=== PATIENT | male | born 1945 | race Caucasian/White ===

== ENCOUNTER 2018-12-27 16:00 | Inpatient (IN) | payer MEDICARE, OTHER ==
[2018-12-27 16:41] LABS: #Eosinphils 0.1 thou/uL (0.0-0.7); #Lymphocytes 1.5 thou/uL (1.20-3.40); #Monocytes 0.9 thou/uL (0.11-0.59); #Neutrophils 6.1 thou/uL (1.40-6.50); %Basophils 0.3 % (0.0-1.0); %Eosinophils 0.6 % (0.0-10.0); %Lymphocytes 17.5 % (21.0-51.0); %Monocytes 9.9 % (0.0-10.0); %Neutrophils 71.6 % (42.0-75.0); Mean Corpuscular HGB CONC 34.4 g/dL (32.0-36.0); Mean Corpuscular Hemoglobin 29.6 pg (27.0-31.0); Mean Corpuscular Volume 85.9 fL (78.0-98.0); Mean Platelet Volume 8.6 fL (7.4-10.4); Platelet Count 214 thou/uL (130-400); RBC Distribution Width 13.9 % (11.5-14.5); Red Blood Cell (RBC) Count 2.36 mill/uL (4.70-6.10); White Blood Cell (WBC) Count 8.6 thou/uL (4.8-10.8)
[2018-12-27 16:49] LABS: PTT 73.4 SEC (22.9-36.1); Prothrombin Time 62.3 SEC (12.0-14.7)
[2018-12-27 16:51] LABS: INR-International Normal Ratio 7.4
[2018-12-27 17:27] LABS: ALT (SGPT) 23 U/L (8-55); AST (SGOT) 27 U/L (5-34); Albumin 3.4 g/dL (3.4-4.8); Alkaline Phosphatase 75 U/L (40-110); Anion Gap 16 mmol/L (10-20); BUN (Urea Nitrogen) 20 mg/dL (8.4-25.7); Bilirubin, Total 0.8 mg/dL (0.2-1.2); CK (CPK) 106 U/L (30-200); Calc. Creatinine Clearance 0 mL/min (70-130); Calcium 8.3 mg/dL (7.8-10.44); Carbon Dioxide 31 mmol/L (23-31); Chloride 85 mmol/L (98-107); Estimated GFR-MDRD 72; Globulin 2.5 g/dL (2.4-3.5); Glucose 224 mg/dL (83-110); Lipase 9 U/L (8-78); Protein, Total 5.9 g/dL (5.8-8.1); Sodium 129 mmol/L (136-145)
[2018-12-27] MEDS ORDERED: Pantoprazole 40 MG VIAL ONE (17:28)
[2018-12-27 17:37] LABS: Potassium 2.5 mmol/L (3.5-5.1)
[2018-12-27] MEDS ORDERED: Pantoprazole 80 MG, Admixture Fee 1 EACH in Sodium Chloride 0.9% 100 ML IVPB SCH (17:45)
[2018-12-27] MEDS ORDERED: Potassium Chloride 20 MEQ TAB ONE (17:55)
[2018-12-27 18:08] LABS: Bacteria/HPF None Seen HPF (None Seen); Bilirubin Negative (Negative); Blood, Urine Trace (Negative); Clarity Clear (Clear); Glucose, Urine (Dipstick) Normal (Negative); Leukocyte Negative Leu/uL (Negative); Nitrite Negative (Negative); Protein, Urine (Dipstick) Negative (Neg-Trace); Squamous Epithelial 0-3 HPF (0-3); Urobilinogen Normal mg/dL (Less than 2); WBC/HPF 0-3 HPF (0-3)
[2018-12-27] MEDS ORDERED: Ondansetron PF 4 MG/2 ML Vial IVP PRN (18:45)
[2018-12-27] MEDS ORDERED: Ondansetron ODT 4 MG TAB SL PRN (18:45)
[2018-12-27] MEDS ORDERED: Dextrose 50% Abboject 50 ML SYRINGE SLOW IVP PRN (18:52)
[2018-12-27] MEDS ORDERED: HumaLOG 300 UNITS/3 ML VIAL SC PRN (18:52)
[2018-12-27] MEDS ORDERED: Acetaminophen 325 MG TAB PO PRN (18:52)
[2018-12-27] MEDS ORDERED: Dextrose 5% in Water 1,000 ML IV PRN (18:52)
[2018-12-27] MEDS ORDERED: NS 0.9% w/ 40 MEQ KCL 1,000 ML IV SCH (19:15)
[2018-12-27] MEDS ORDERED: Phytonadione 10 MG/ML AMP PO SCH (19:15)
[2018-12-27 19:46] VITALS: BMI 31.7
[2018-12-27 20:28] LABS: Free T4 (Free Thyroxine) 1.12 ng/dL (0.70-1.48); Thyroid Stimulating Hormone 0.883 uIU/mL (0.35-4.94)
[2018-12-27] MEDS: Sodium Chloride 0.9% (PF) 10 ML VIAL FS PRN (21:24)
[2018-12-27] MEDS: Pantoprazole 40 MG VIAL IVP SCH (21:24)
--- NOTE | 2018-12-27 21:28 | HP ---
PRIMARY CARE PHYSICIAN: Charles Howard DO. CHIEF COMPLAINT: "I have an elevated INR." HISTORY OF PRESENT ILLNESS: Mr. Harkins is a pleasant 73-year-old gentleman who has a history of chronic atrial fibrillation, he is on Coumadin and he regularly goes to the [facility] in order to have his PT and INR checked. He went to the coumadin clinic today and was told that his INR was elevated. He had it rechecked and it was confirmed that it was high and as a result, he was instructed to come to the ER for evaluation. When he was in the ER, the INR was drawn and it was found that his INR was 7.4. He was also found to be anemic as well with a hemoglobin of 7, and he is also noted to have some dark tarry stools, and for this reason, he is being admitted. The patient says that he noticed the dark stools for the past week, but he denies having any abdominal pain. No nausea, no vomiting. He says that he denies feeling lightheaded or dizzy. No shortness of breath or chest pain, but does admit that he has been feeling "uneasy" lately. When asked if he had any change in his medications, he denies this. He says he has taken melatonin 3 mg for the last few days, but does admit to decreased appetite recently. REVIEW OF SYSTEMS: All systems were reviewed and are negative except for that mentioned in the History of Present Illness. PAST MEDICAL HISTORY: Significant for chronic atrial fibrillation, diabetes mellitus, history of a colon polyp, and hypertension. PAST SURGICAL HISTORY: He has had a right colon resection and umbilical hernia repair as well as a vasectomy. ALLERGIES: NO KNOWN DRUG ALLERGIES. 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 He is a former smoker, but he quit at least 20 years ago. Denies any alcohol use and he is a full code. FAMILY HISTORY: Mother had pancreatic cancer. Father had prostate cancer. CURRENT MEDICATIONS: Include; 1. Amlodipine/benazepril 10/20 daily. 2. Hydrochlorothiazide 25 mg daily. 3. Carvedilol 6.25 mg twice a day. 4. Janumet 50 mg/1000 twice a day. 5. Actos 15 mg daily. 6. Atorvastatin 10 mg daily. 7. Diltiazem extended release 180 mg daily. 8. Flomax 0.4 mg daily. 9. Warfarin 5 mg daily. 10. Avodart 0.5 mg daily. PHYSICAL EXAMINATION: GENERAL: He is alert and oriented. He appears to be in no acute distress. He is well developed and well nourished. VITAL SIGNS: Blood pressure was 133/58, heart rate 104, respiratory rate 16. He is afebrile. HEENT: Pupils are equal, round, and reactive. Extraocular muscles are intact. His sclerae are anicteric. Throat; no erythema, no exudates. NECK: No adenopathy, no bruits. LUNGS: He has some mild expiratory wheezing. No rhonchi, no rales. CARDIOVASCULAR: His heart rate is irregular. Rate is normal. There are no murmurs, clicks, or rubs. ABDOMEN: Obese, soft, nontender, and nondistended. Positive for bowel sounds. No rebound. No guarding. EXTREMITIES: He has 1 to 2+ edema and some chronic venous stasis changes and no significant lesions. NEUROLOGIC: Grossly nonfocal. SKIN AND INTEGUMENT: No skin changes, no rashes other than some hyperpigmentation in the lower extremities. LABORATORY DATA AND IMAGING: White blood cell count 8.6, hemoglobin 7, hematocrit is 20.3, platelet count is 214. INR is 7.4. Sodium is 129, potassium 2.5, chloride is 85, CO2 is 31, BUN of 20, creatinine 1.02, glucose is 224. Troponin is less than 0.010. ASSESSMENT: 1. This is a pleasant 73-year-old gentleman who is being admitted for supratherapeutic INR. Also concern for gastrointestinal bleed and he is also noted to be hypokalemic and hyponatremic as well. 2. He will be admitted to the telemetry unit, given the low potassium and sodium. With regard to the supratherapeutic INR, we will give him a low-dose vitamin K, hold his Coumadin. 3. Possible gastrointestinal bleed. We will put him on IV Protonix q.12 and consult GI for further evaluation. 4. Hypokalemia. This will be replaced. I suspect this is low due to poor oral intake over the last week. 5. Hyponatremia. This appears to be chronic going back at least a year. We will check urine and serum osmolalities as well as a urine sodium to help distinguish the type of hyponatremia. 6. Atrial fibrillation. Currently, his heart rate is controlled and we will restart his medications of for this. 7. Hypertension. We will continue his home medications. Job ID: [id number]
[2018-12-28 01:02] LABS: Hemoglobin 7.9 g/dL (14.0-18.0)
[2018-12-28] MEDS ORDERED: Potassium Chloride 20 MEQ TAB PO SCH (01:45)
[2018-12-28] MEDS: HumaLOG 300 UNITS/3 ML VIAL SC PRN ×3 (05:25→17:40)
[2018-12-28 06:28] LABS: #Eosinphils 0.1 thou/uL (0.0-0.7); #Lymphocytes 1.3 thou/uL (1.20-3.40); #Monocytes 0.8 thou/uL (0.11-0.59); #Neutrophils 4.5 thou/uL (1.40-6.50); %Basophils 0.5 % (0.0-1.0); %Eosinophils 0.8 % (0.0-10.0); %Lymphocytes 19.5 % (21.0-51.0); %Monocytes 12.3 % (0.0-10.0); %Neutrophils 66.8 % (42.0-75.0); Hemoglobin 7.4 g/dL (14.0-18.0); Mean Corpuscular HGB CONC 34.3 g/dL (32.0-36.0); Mean Corpuscular Hemoglobin 29.7 pg (27.0-31.0); Mean Corpuscular Volume 86.7 fL (78.0-98.0); Mean Platelet Volume 9.1 fL (7.4-10.4); Platelet Count 189 thou/uL (130-400); RBC Distribution Width 13.8 % (11.5-14.5); Red Blood Cell (RBC) Count 2.51 mill/uL (4.70-6.10); White Blood Cell (WBC) Count 6.8 thou/uL (4.8-10.8)
[2018-12-28 06:31] LABS: INR-International Normal Ratio 3.1; Prothrombin Time 31.4 SEC (12.0-14.7)
[2018-12-28 06:51] LABS: Anion Gap 11 mmol/L (10-20); BUN (Urea Nitrogen) 12 mg/dL (8.4-25.7); Calc. Creatinine Clearance 127 mL/min (70-130); Calcium 8.1 mg/dL (7.8-10.44); Carbon Dioxide 33 mmol/L (23-31); Chloride 89 mmol/L (98-107); Estimated GFR-MDRD Greater than 90; Glucose 198 mg/dL (83-110); Magnesium 1.6 mg/dL (1.6-2.6); Sodium 130 mmol/L (136-145)
[2018-12-28 06:55] LABS: Potassium 2.6 mmol/L (3.5-5.1)
[2018-12-28] MEDS ORDERED: Magnesium Sulfate 2 GM in Sodium Chloride 0.9% 100 ML IVPB SCH (07:00)
[2018-12-28] MEDS ORDERED: Potassium Chloride 40 MEQ in Premix Bag 1 BAG IVPB SCH (07:00)
[2018-12-28] MEDS ORDERED: Magnesium 2 GM/50 ML 2 GM in Premix Bag 1 BAG IVPB SCH (07:15)
[2018-12-28] MEDS ORDERED: Phytonadione 10 MG/ML AMP PO SCH (07:45)
[2018-12-28] MEDS ORDERED: Potassium Chloride 2 MEQ in Premix Bag 1 BAG IVPB SCH (08:00)
[2018-12-28] MEDS: Pantoprazole 40 MG VIAL IVP SCH ×2 (08:38→20:54)
[2018-12-28] MEDS: Pioglitazone HCl 15 MG TAB PO SCH (08:38)
[2018-12-28] MEDS: metFORMIN 500 MG TAB PO SCH ×2 (08:38→17:40)
[2018-12-28] MEDS: Atorvastatin Calcium 10 MG TAB PO SCH (08:38)
[2018-12-28] MEDS: Amlodipine 5 mg/Benazepril 10 mg CAP PO SCH (08:38)
[2018-12-28] MEDS: Tamsulosin HCl 0.4 MG CAP PO SCH (08:38)
[2018-12-28] MEDS: Carvedilol 6.25 MG TAB PO SCH ×2 (08:38→20:53)
[2018-12-28] MEDS: Dutasteride 0.5 MG CAP PO SCH (08:38)
[2018-12-28] MEDS: Potassium Chloride 20 MEQ TAB PO SCH ×2 (08:39→17:40)
[2018-12-28] MEDS: Alogliptin 6.25 MG TAB PO SCH ×2 (08:39→17:39)
[2018-12-28] MEDS ORDERED: Non-Formulary Item 1 EACH (Sitagliptin Phos/Metformin Hcl [Janumet] 1 TAB) PO SCH (09:00)
[2018-12-28] MEDS ORDERED: BENAZEPRIL PO SCH (09:00)
[2018-12-28] MEDS ORDERED: Non-Formulary Item 1 EACH (Diltiazem Hcl [Diltiazem Er 24 Hr] 180 MG) PO SCH (09:00)
[2018-12-28] MEDS ORDERED: AMLODIPINE BESYLATE PO SCH (09:00)
[2018-12-28] MEDS: Potassium Chloride 20 MEQ in Premix Bag 1 BAG IVPB SCH ×2 (09:56→11:01)
[2018-12-28 16:01] LABS: Potassium 3.2 mmol/L (3.5-5.1)
[2018-12-28] MEDS ORDERED: GoLYTELY 4,000 ml Bottle PO SCH (16:30)
--- NOTE | 2018-12-28 17:33 | PDOC.HOSPP ---
- Subjective Encounter Date: 12/28/18 Encounter Time: 17:31 Subjective: Mr. Harkins was seen today in follow-up of supra-therapeutic INR and GI bleed. He says he feels much better today. No complaints. - Objective Vital Signs & Weight: Vital Signs (12 hours) Temp Pulse Resp BP Pulse Ox 12/28/18 16:00 98.6 F 92 20 156/71 H 93 L 12/28/18 11:00 98.6 F 89 20 135/76 92 L 12/28/18 08:00 93 L 12/28/18 07:35 98.6 F 99 20 148/76 H 93 L Weight Weight 247 lb I&O: 12/27/18 12/28/18 12/29/18 06:59 06:59 06:59 Intake Total 350 240 Balance 350 240 Result Diagrams: 12/28/18 05:51 12/28/18 15:47 Additional Labs: Accuchecks 12/28/18 12/28/18 12/28/18 16:16 11:08 05:03 POC Glucose 210 H 264 H 223 H 12/27/18 21:44 POC Glucose 275 H Hospitalist ROS - Medication Medications: Active Medications Generic Name Dose Route Start Last Admin Trade Name Freq PRN Reason Stop Dose Admin Alogliptin Benzoate 12.5 mg 12/28/18 08:00 12/28/18 08:39 Alogliptin PO 12.5 mg BID-WM SONIA Administration Amlodipine/Benazepril HCl 2 cap 12/28/18 09:00 12/28/18 08:38 Lotrel 5/10 PO 2 cap DAILY SONIA Administration Atorvastatin Calcium 10 mg 12/28/18 09:00 12/28/18 08:38 Lipitor PO 10 mg DAILY SONIA Administration Carvedilol 6.25 mg 12/28/18 09:00 12/28/18 08:38 Coreg PO 6.25 mg BID SONIA Administration Diltiazem HCl 180 mg 12/28/18 09:00 12/28/18 08:38 Cardizem Cd PO 180 mg DAILY SONIA Administration Dutasteride 0.5 mg 12/28/18 09:00 12/28/18 08:38 Avodart PO 0.5 mg DAILY SONIA Administration Insulin Human Lispro 0 units 12/27/18 18:52 12/28/18 12:15 Humalog SC 6 unit .MODERATE SLIDING SC PRN Administration Moderate Correctional Scale Insulin Human Lispro 0 units 12/27/18 18:52 12/27/18 21:43 Humalog SC 3 unit .BEDTIME SLIDING SC PRN Administration Bedtime Correctional Scale Metformin HCl 1,000 mg 12/28/18 08:00 12/28/18 08:38 Glucophage PO 1,000 mg BID-WM SONIA Administration Pantoprazole Sodium 40 mg 12/27/18 21:00 12/28/18 08:38 Protonix IVP 40 mg Q12HR SONIA Administration Pioglitazone HCl 15 mg 12/28/18 09:00 12/28/18 08:38 Actos PO 15 mg DAILY SONIA Administration Potassium Chloride 20 meq 12/28/18 08:00 12/28/18 08:39 K-Dur PO 12/29/18 08:01 20 meq BID-WM SONIA Administration Sodium Chloride 10 ml 12/27/18 18:59 12/27/18 21:24 Normal Saline Pf FS 10 ml PRN PRN Administration RECONSTITUTION Tamsulosin HCl 0.4 mg 12/28/18 09:00 12/28/18 08:38 Flomax PO 0.4 mg DAILY SONIA Administration - Exam Eye: PERRL Heart: RRR, no murmur, no gallops, no rubs, normal peripheral pulses Respiratory: CTAB, no wheezes, no rales, no ronchi, normal chest expansion, no tachypnea, normal percussion Gastrointestinal: soft, normal bowel sounds, no palpable masses, no hepatomegaly Extremities: no cyanosis, 2+ LE edema Hosp A/P (1) Warfarin-induced coagulopathy Code(s): D68.32 - HEMORRHAGIC DISORD D/T EXTRINSIC CIRCULATING ANTICOAGULANTS; T45.515A - ADVERSE EFFECT OF ANTICOAGULANTS, INITIAL ENCOUNTER Status: Acute (2) Hypertension Code(s): I10 - ESSENTIAL (PRIMARY) HYPERTENSION Status: Acute (3) Atrial fibrillation Code(s): I48.91 - UNSPECIFIED ATRIAL FIBRILLATION Status: Acute (4) Diabetes mellitus type 2 in obese Code(s): E11.69 - TYPE 2 DIABETES MELLITUS WITH OTHER SPECIFIED COMPLICATION; E66.9 - OBESITY, UNSPECIFIED Status: Chronic (5) Hypokalemia Code(s): E87.6 - HYPOKALEMIA Status: Acute (6) Hyponatremia Code(s): E87.1 - HYPO-OSMOLALITY AND HYPONATREMIA Status: Chronic - Plan * Coagulopathy due to coumadin- an additional dose of Vitamin K was given today * HTN- blood pressure is stable- will re-start home medications for now * Hypokalemia- continue to replace * Hyponatremia- chronic- labs work suggests SIADH- will discontinue IV fluids * GI- bleed- await GI input
--- NOTE | 2018-12-28 22:52 | CON ---
DATE OF CONSULTATION: REASON FOR CONSULTATION: GI consult for anemia, possible GI bleed. HISTORY OF PRESENT ILLNESS: Mr. Harkins is a 73-year-old who is admitted to the hospital, secondary to not feeling well over the past couple of days. He initially thought maybe he had a stomach bug. He did not have much of an appetite. No real pain. He had a little bit of dark stool, probably black last week, and he is concerned that maybe blood, but he was not sure. He is on Coumadin as well for atrial fibrillation. He was going to wait till he had an appointment next week, but ultimately decided to come to the emergency room as he was not feeling well. Also, he had seen his primary care physician, Dr. Howard, who told him that his INR was elevated. the stool is getting back to normal in color. He denies any abdominal pain, nausea, vomiting, or hematochezia or hematemesis. PAST MEDICAL HISTORY: Chronic atrial fibrillation, diabetes and hypertension. He had a large colon polyp from right colon, necessitating a right hemicolectomy in 2011. He had a followup colonoscopy in 13 years, not had one since. PAST SURGICAL HISTORY: Umbilical hernia repair, right hemicolectomy, and vasectomy ALLERGIES: NO KNOWN DRUG ALLERGIES. 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 Former smoker. Does not drink. FAMILY HISTORY: Father, prostate cancer. Mother, pancreatic. MEDICATIONS: 1. Amlodipine/benazepril. 2. Hydrochlorothiazide. 3. Carvedilol. 4. Janumet. 5. Actos. 6. Atorvastatin. 7. Diltiazem. 8. Flomax. 9. Warfarin. 10. Avodart. Medications here: 1. Tylenol. 2. Amlodipine/benazepril. 3. Atorvastatin. 4. Carvedilol. 5. Diltiazem. 6. Avodart. 7. Insulin sliding scale. 8. Metformin 1000 b.i.d. with meals. 9. Protonix 40 IV q.12. 10. Actos. 11. P.r.n. potassium. 12. Flomax. REVIEW OF SYSTEMS: Negative for dysphagia or odynophagia. Negative for weight loss. Positive for some appetite loss recently, but that is improving. Negative for sick contacts. Negative for change in medications. Negative for NSAID use. Negative for recent antibiotics. LABORATORY DATA: Hemoglobin is 7.3; on admission, it was 13.1 in December 2017, it is unclear what it was in between. His hemoglobin stayed about that was 7.4 today at 5 in the morning. Platelet count is 189, white count 6.8. INR was 7.3 on admission, it is 3.1 now. Sodium 129, potassium 3.5, BUN and creatinine 20 and 1.2. Liver function tests normal. BNP 132. Cortisol is 7.7, TSH 0.88. Urinalysis normal. Stool occult blood negative. ASSESSMENT: Anemia of unclear etiology. He did have an elevated INR for dark stools, but his occult blood test was negative. He is about a year overdue for a colonoscopy as in 2012. In 2011, he had removal of large benign polyp from right colon surgically. PLAN: Liquid diet today. Bowel prep today. Colonoscopy and EGD tomorrow. We will continue to hold Coumadin for now. Job ID: [id number]
[2018-12-29 05:52] LABS: #Eosinphils 0.1 thou/uL (0.0-0.7); #Lymphocytes 1.1 thou/uL (1.20-3.40); #Monocytes 0.7 thou/uL (0.11-0.59); #Neutrophils 4.4 thou/uL (1.40-6.50); %Basophils 0.2 % (0.0-1.0); %Eosinophils 0.9 % (0.0-10.0); %Lymphocytes 18.1 % (21.0-51.0); %Monocytes 11.1 % (0.0-10.0); %Neutrophils 69.7 % (42.0-75.0); Hemoglobin 7.7 g/dL (14.0-18.0); Mean Corpuscular HGB CONC 34.3 g/dL (32.0-36.0); Mean Corpuscular Hemoglobin 30.3 pg (27.0-31.0); Mean Corpuscular Volume 88.5 fL (78.0-98.0); Mean Platelet Volume 8.8 fL (7.4-10.4); Platelet Count 200 thou/uL (130-400); RBC Distribution Width 13.9 % (11.5-14.5); Red Blood Cell (RBC) Count 2.52 mill/uL (4.70-6.10); White Blood Cell (WBC) Count 6.3 thou/uL (4.8-10.8)
[2018-12-29 05:56] LABS: INR-International Normal Ratio 1.3; Prothrombin Time 16.3 SEC (12.0-14.7)
[2018-12-29 06:17] LABS: Anion Gap 10 mmol/L (10-20); BUN (Urea Nitrogen) 8 mg/dL (8.4-25.7); Calc. Creatinine Clearance 117 mL/min (70-130); Calcium 7.8 mg/dL (7.8-10.44); Carbon Dioxide 34 mmol/L (23-31); Chloride 92 mmol/L (98-107); Estimated GFR-MDRD 84; Glucose 184 mg/dL (83-110); Sodium 133 mmol/L (136-145)
[2018-12-29 06:22] LABS: Potassium 2.8 mmol/L (3.5-5.1)
[2018-12-29] MEDS: Carvedilol 6.25 MG TAB PO SCH ×2 (06:40→20:14)
[2018-12-29] MEDS ORDERED: Potassium Chloride 40 MEQ in Premix Bag 1 BAG IVPB SCH (07:00)
[2018-12-29 08:48] LABS: Magnesium 1.8 mg/dL (1.6-2.6); Phosphorus 2.1 mg/dL (2.3-4.7)
[2018-12-29] MEDS: Potassium Chloride 20 MEQ in Premix Bag 1 BAG IVPB SCH ×2 (08:54→14:16)
[2018-12-29] MEDS: Pantoprazole 40 MG VIAL IVP SCH ×2 (08:54→20:15)
[2018-12-29] MEDS ORDERED: Fentanyl 100 MCG/2 ML VIAL ONE (11:47)
[2018-12-29] MEDS ORDERED: Ketamine 50 MG/ML (10ML VIAL) ONE (12:32)
[2018-12-29] MEDS: Alogliptin 6.25 MG TAB PO SCH ×2 (12:55→17:27)
[2018-12-29] MEDS: metFORMIN 500 MG TAB PO SCH ×2 (12:55→17:28)
[2018-12-29] MEDS ORDERED: Promethazine HCl 25 MG/ML VIAL IM PRN (13:00)
[2018-12-29] MEDS ORDERED: Promethazine HCl 25 MG/ML VIAL SLOW IVP PRN (13:00)
[2018-12-29] MEDS ORDERED: Ondansetron HCl/PF 4 MG/2 ML Vial IVP PRN (13:00)
[2018-12-29] MEDS ORDERED: PACU-Morphine 4MG/ML VIAL SLOW IVP PRN (13:00)
[2018-12-29] MEDS: Pioglitazone HCl 15 MG TAB PO SCH (14:15)
[2018-12-29] MEDS: Amlodipine 5 mg/Benazepril 10 mg CAP PO SCH (14:15)
[2018-12-29] MEDS: Tamsulosin HCl 0.4 MG CAP PO SCH (14:15)
[2018-12-29] MEDS: Dutasteride 0.5 MG CAP PO SCH (14:15)
[2018-12-29] MEDS: Atorvastatin Calcium 10 MG TAB PO SCH (14:15)
[2018-12-29] MEDS: HumaLOG 300 UNITS/3 ML VIAL SC PRN ×2 (14:21→17:28)
[2018-12-29] MEDS ORDERED: Potassium Chloride 20 MEQ TAB PO SCH (15:00)
[2018-12-29] MEDS: Potassium Chloride 20 MEQ TAB PO SCH (15:03)
--- NOTE | 2018-12-29 15:49 | OP ---
DATE OF PROCEDURE: 12/29/2018 PROCEDURE PERFORMED: Esophagogastroduodenoscopy with biopsy. PREOPERATIVE DIAGNOSES: A 73-year-old male, anemia, history of black tarry stool couple of weeks ago. The patient undergoing EGD. POSTOPERATIVE DIAGNOSES: 1. Normal esophageal mucosa. 2. A short segment of vein seen over distal esophagus. 3. Gastric atrophy with prominent submucosal veins. 4. Polyp in the duodenal bulb and also over the second part of the duodenum. DESCRIPTION OF PROCEDURE: The patient was placed on his left lateral position and was given sedation by Anesthesia Department. A Pentax video gastroscope under direct vision was passed down the oropharynx, past the GE junction into the stomach and subsequently into the descending duodenum. The esophageal mucosa appeared normal. No esophagitis seen. At the distal esophagus, the patient found to have a short segment of vein varicose veins. At the GE junction, no lesion seen. Retroflexion failed to show any pathology in fundus or cardia. The patient appeared to have prominent submucosal veins indicative of gastric atrophy. The gastric body, gastric antrum, no lesion seen. There was a polyp in the duodenal bulb and also another polyp in the second part of duodenum. Polyps were biopsied. The stomach decompressed and the scope removed. RECOMMENDATION: 1. Restart Coumadin as before. 2. Iron supplement. 3. Follow up H and H. Job ID: [id number]
--- NOTE | 2018-12-29 17:37 | PDOC.HOSPP ---
- Subjective Encounter Date: 12/29/18 Encounter Time: 17:35 Subjective: Mr. Harkins was seen today in follow-up of GI bleed and elevated INR. He feels a little anxious, and his heart rate is noted to be elevated. He denies chest pain or shortness of breath. He denies feeling dizzy or lightheaded. - Objective Vital Signs & Weight: Vital Signs (12 hours) Temp Pulse Resp BP BP BP Pulse Ox 12/29/18 14:10 97.5 F L 110 H 18 130/58 L 93 L 12/29/18 08:00 93 L 12/29/18 07:15 98.5 F 97 19 131/75 93 L 12/29/18 06:40 116/73 Weight Weight 247 lb I&O: 12/28/18 12/29/18 12/30/18 06:59 06:59 06:59 Intake Total 350 480 Balance 350 480 Result Diagrams: 12/29/18 05:16 12/29/18 05:16 Additional Labs: Accuchecks 12/29/18 12/29/18 12/29/18 15:21 14:17 04:23 POC Glucose 236 H 212 H 217 H 12/28/18 19:19 POC Glucose 214 H Hospitalist ROS - Medication Medications: Active Medications Generic Name Dose Route Start Last Admin Trade Name Teofiloq PRN Reason Stop Dose Admin Alogliptin Benzoate 12.5 mg 12/28/18 08:00 12/29/18 17:27 Alogliptin PO 12.5 mg BID-WM SONIA Administration Amlodipine/Benazepril HCl 2 cap 12/28/18 09:00 12/29/18 14:15 Lotrel 5/10 PO 2 cap DAILY SONIA Administration Atorvastatin Calcium 10 mg 12/28/18 09:00 12/29/18 14:15 Lipitor PO 10 mg DAILY SONIA Administration Carvedilol 6.25 mg 12/28/18 09:00 12/29/18 06:40 Coreg PO 6.25 mg BID SONIA Administration Diltiazem HCl 180 mg 12/28/18 09:00 12/29/18 14:15 Cardizem Cd PO 180 mg DAILY SONIA Administration Dutasteride 0.5 mg 12/28/18 09:00 12/29/18 14:15 Avodart PO 0.5 mg DAILY SONIA Administration Insulin Human Lispro 0 units 12/27/18 18:52 12/29/18 17:28 Humalog SC 4 unit .MODERATE SLIDING SC PRN Administration Moderate Correctional Scale Insulin Human Lispro 0 units 12/27/18 18:52 12/27/18 21:43 Humalog SC 3 unit .BEDTIME SLIDING SC PRN Administration Bedtime Correctional Scale Metformin HCl 1,000 mg 12/28/18 08:00 12/29/18 17:28 Glucophage PO 1,000 mg BID-WM SONIA Administration Pantoprazole Sodium 40 mg 12/27/18 21:00 12/29/18 08:54 Protonix IVP 40 mg Q12HR SONIA Administration Pioglitazone HCl 15 mg 12/28/18 09:00 12/29/18 14:15 Actos PO 15 mg DAILY SONIA Administration Sodium Chloride 10 ml 12/27/18 18:59 12/27/18 21:24 Normal Saline Pf FS 10 ml PRN PRN Administration RECONSTITUTION Tamsulosin HCl 0.4 mg 12/28/18 09:00 12/29/18 14:15 Flomax PO 0.4 mg DAILY SONIA Administration - Exam Eye: PERRL Heart: no murmur, no gallops, no rubs, normal peripheral pulses, irregular Respiratory: CTAB, no wheezes, no rales, no ronchi, normal chest expansion, no tachypnea, normal percussion Gastrointestinal: soft, non-tender, non-distended, normal bowel sounds, no palpable masses, no hepatomegaly, no splenomegaly Extremities: 2+ LE edema (chronic venous stasis changes) Hosp A/P (1) Warfarin-induced coagulopathy Code(s): D68.32 - HEMORRHAGIC DISORD D/T EXTRINSIC CIRCULATING ANTICOAGULANTS; T45.515A - ADVERSE EFFECT OF ANTICOAGULANTS, INITIAL ENCOUNTER Status: Acute (2) Hypertension Code(s): I10 - ESSENTIAL (PRIMARY) HYPERTENSION Status: Acute (3) Atrial fibrillation Code(s): I48.91 - UNSPECIFIED ATRIAL FIBRILLATION Status: Acute (4) Diabetes mellitus type 2 in obese Code(s): E11.69 - TYPE 2 DIABETES MELLITUS WITH OTHER SPECIFIED COMPLICATION; E66.9 - OBESITY, UNSPECIFIED Status: Chronic (5) Hypokalemia Code(s): E87.6 - HYPOKALEMIA Status: Acute (6) Hyponatremia Code(s): E87.1 - HYPO-OSMOLALITY AND HYPONATREMIA Status: Chronic - Plan * Coagulopathy due to coumadin- this has been corrected * ? GI Bleed- the EGD results were noted- he can go back on anticoagulation. He would prefer to take Pradaxa this time. He has used this in the past * AFIB- he heart rate is rapid- will move him to telemetry, and give a dose of IV Cardizem. He may need a cardizem drip * HTN- blood pressure is stable- will re-start home medications for now * Hypokalemia- continue to replace * Hyponatremia- chronic-
[2018-12-30 04:50] LABS: #Eosinphils 0.1 thou/uL (0.0-0.7); #Lymphocytes 1.2 thou/uL (1.20-3.40); #Monocytes 0.7 thou/uL (0.11-0.59); #Neutrophils 4.3 thou/uL (1.40-6.50); %Basophils 0.5 % (0.0-1.0); %Eosinophils 1.1 % (0.0-10.0); %Lymphocytes 19.2 % (21.0-51.0); %Monocytes 10.9 % (0.0-10.0); %Neutrophils 68.3 % (42.0-75.0); INR-International Normal Ratio 1.2; Mean Corpuscular HGB CONC 34.1 g/dL (32.0-36.0); Mean Corpuscular Hemoglobin 30.6 pg (27.0-31.0); Mean Corpuscular Volume 89.8 fL (78.0-98.0); Mean Platelet Volume 8.8 fL (7.4-10.4); Platelet Count 223 thou/uL (130-400); Prothrombin Time 15.3 SEC (12.0-14.7); RBC Distribution Width 14.4 % (11.5-14.5); White Blood Cell (WBC) Count 6.3 thou/uL (4.8-10.8)
[2018-12-30 05:46] LABS: Anion Gap 11 mmol/L (10-20); BUN (Urea Nitrogen) 11 mg/dL (8.4-25.7); Calc. Creatinine Clearance 68 mL/min (70-130); Calcium 8.2 mg/dL (7.8-10.44); Carbon Dioxide 32 mmol/L (23-31); Chloride 97 mmol/L (98-107); Estimated GFR-MDRD 45; Glucose 177 mg/dL (83-110); Sodium 137 mmol/L (136-145)
[2018-12-30] MEDS ORDERED: Potassium Chloride 20 MEQ TAB PO SCH ×2 (08:00)
[2018-12-30] MEDS ORDERED: Sodium Chloride 0.9% 1,000 ML IV SCH (08:15)
[2018-12-30] MEDS ORDERED: Dabigatran 150 mg Capsule PO SCH (09:00)
[2018-12-30] MEDS: Amlodipine 5 mg/Benazepril 10 mg CAP PO SCH (09:05)
[2018-12-30] MEDS: Pioglitazone HCl 15 MG TAB PO SCH (09:06)
[2018-12-30] MEDS: Sodium Chloride 0.9% (PF) 10 ML VIAL FS PRN (09:06)
[2018-12-30] MEDS: Pantoprazole 40 MG VIAL IVP SCH (09:06)
[2018-12-30] MEDS: metFORMIN 500 MG TAB PO SCH (09:06)
[2018-12-30] MEDS: Dutasteride 0.5 MG CAP PO SCH (09:06)
[2018-12-30] MEDS: Tamsulosin HCl 0.4 MG CAP PO SCH (09:07)
[2018-12-30] MEDS: Carvedilol 6.25 MG TAB PO SCH (09:07)
[2018-12-30] MEDS: Alogliptin 6.25 MG TAB PO SCH (09:07)
[2018-12-30] MEDS: Atorvastatin Calcium 10 MG TAB PO SCH (09:07)
[2018-12-30 12:10] VITALS: BP 133/61; TEMP 98.1
--- NOTE | 2018-12-30 14:31 | DIS ---
DATE OF ADMISSION: 12/27/2018 DATE OF DISCHARGE: 12/30/2018 DISCHARGE DIAGNOSES: 1. Warfarin-induced coagulopathy, improved. 2. Acute gastrointestinal bleed secondary to warfarin-induced coagulopathy, stable. 3. Acute blood loss anemia secondary to warfarin-induced coagulopathy, status post 1 unit of packed red blood cells. 4. Hyponatremia, resolved. 5. Hypokalemia, improved. 6. Acute kidney injury on chronic kidney disease, stage 3. 7. Chronic anticoagulation. 8. Atrial fibrillation with variable rate on chronic anticoagulation with Pradaxa. 9. Diabetes mellitus, type 2. CONSULTATIONS: Dr. Harding and Dr. Fall with GI Service. PERTINENT LABORATORY AND X-RAY FINDINGS: Sodium ranged between 129 to 137, potassium ranged between 2.5 to 3.2, creatinine ranged between 0.82 to 1.54, estimated GFR ranged between 45 to greater than 90. Magnesium level ranged between 1.5 to 1.8. BNP 132. TSH 0.88. Free T4 of 1.12. Serum cortisol level 11.7. Troponin I negative x1. CBC showed a hemoglobin ranging between 7.0 to 8.0. INR ranged between 1.2 to 7.4. Stool Hemoccult negative x1 dated 12/27/2018. HOSPITAL COURSE: The patient was initially admitted after presenting with elevated INR of 7.4. The patient on chronic Coumadin therapy due to chronic atrial fibrillation, presenting with coagulopathy due to Coumadin therapy. The patient was given vitamin K and discontinued on Coumadin and monitored for potential GI bleed. The patient with melenic stools with negative stool Hemoccult x1. Consultation was obtained by the GI Service with recommendations for EGD, colonoscopy exam. EGD evaluation was performed on 12/29/2018, showing normal esophageal mucosa with gastric atrophy and prominent submucosal veins. Two polyps were noted and biopsied with final pathology pending. The patient received 1 unit of packed red blood cells during the hospital course with stable H and H monitoring for the remainder of the hospital stay. The patient resumed regular oral intake and received potassium supplementation due to hypokalemia. Telemetry monitoring showed chronic atrial fibrillation with variable rate, currently controlled. Overall, the patient did remain clinically stable during the hospital course, tolerating regular oral intake and ambulating short distances with a rolling walker. The patient overall clinically stable and ready for discharge on 12/30/2018. I have examined the patient at the time of discharge and discussed followup instructions. The patient verbalized understanding and in agreement and ready for discharge on 12/30/2018. DISCHARGE MEDICATIONS: 1. Amlodipine/benazepril 10/20 mg 1 tablet p.o. daily. 2. Lipitor 10 mg p.o. daily. 3. Carvedilol 6.25 mg p.o. b.i.d. 4. Diltiazem ER 180 mg p.o. daily. 5. Avodart 0.5 mg p.o. daily. 6. Actos 15 mg p.o. daily. 7. Janumet mg 1 tablet p.o. b.i.d. 8. Flomax 0.4 mg p.o. daily. 9. Pradaxa 150 mg p.o. b.i.d. 10. Hydrochlorothiazide 12.5 mg p.o. daily. 11. Protonix 40 mg p.o. daily. 12. Klor-Con 20 mEq p.o. daily. FOLLOWUP: The patient may follow up with his primary care provider, Dr. Charles Howard within 7 days of discharge. The patient will follow up with Dr. Fall with GI Service. The patient will follow up with Dr. Alfonzo Dickens with Cardiology Service. CONDITION ON DISCHARGE: Stable. ACTIVITY: Ad-richard. DIET: Heart healthy and ADA. SPECIAL INSTRUCTIONS: Recommend repeat basic metabolic profile and CBC at first followup visit. CODE STATUS: Full. DISPOSITION: Home on 12/30/2018. TIME SPENT: Total time preparing and coordinating discharge, 33 minutes. Job ID: [id number]
--- NOTE | 2019-01-01 15:07 | OP ---
DATE OF PROCEDURE: 12/29/2018 PROCEDURES PERFORMED: 1. Colonoscopy with polypectomy. 2. Colonoscopy with 7-Sami BICAP therapy at polypectomy site. PREOPERATIVE DIAGNOSES: History of colon polyp, anemia, history of tarry stool. POSTOPERATIVE DIAGNOSES: 1. Hemorrhoids. 2. Sessile rectal polyp, status post snare cautery. 3. Some retained fecal material and residue in the colon. 4. Healthy anastomosis. DESCRIPTION OF PROCEDURE: The patient was placed on his left lateral position and was given sedation by Anesthesia Department. A rectal exam was done before the scope was advanced into the rectum. No lesions felt on rectal exam. A Pentax video colonoscope was introduced into the rectum and advanced all the way to anastomotic area. The patient's prep was reasonably good, but he actually had some retained stool intermittently in the colon. The mucosa appears normal throughout the colon. The patient has previous, I believe, right colectomy, and the anastomotic area appears healthy. the area. The scope was advanced to the terminal ileum. The ileal mucosa appeared normal. Withdrawal of scope from the anastomotic area into the transverse colon, splenic flexure, descending colon, sigmoid colon, no lesion seen. There was a small polyp seen in the sigmoid colon area, which . The polyp appeared hyperplastic. Because of location, removed. Retroflexion of scope in the rectum showed hemorrhoids. He had a sessile rectal polyp. The polyp was removed with snare cautery. However, he had mild bleeding from polypectomy site and that had been cauterized with a 7-Sami BICAP probe. Job ID: [id number]
== END 2018-12-30 15:58 | disposition home or self-care (01) | DRG 813 ==
LOC: ERS 16:00 → T4-A 18:41 → 2NO 12-29 18:26
PROVIDERS: ADMIT Internal Medicine; ATTEND Internal Medicine
PROC: 30233N1 Transfusion of Nonautologous Red Blood Cells into Peripheral Vein, Percutaneous Approach (ICD-10-PCS; 2018-12-27)
PROC: 0DBP8ZZ Excision of Rectum, Via Natural or Artificial Opening Endoscopic (ICD-10-PCS; principal; 2018-12-29)
PROC: 0DBN8ZZ Excision of Sigmoid Colon, Via Natural or Artificial Opening Endoscopic (ICD-10-PCS; 2018-12-29)
PROC: 0W3P8ZZ Control Bleeding in Gastrointestinal Tract, Via Natural or Artificial Opening Endoscopic (ICD-10-PCS; 2018-12-29)
PROC: 0DB98ZX Excision of Duodenum, Via Natural or Artificial Opening Endoscopic, Diagnostic (ICD-10-PCS; 2018-12-29)
DX: D68.32 Hemorrhagic disorder due to extrinsic circulating anticoagulants (principal); D62 Acute posthemorrhagic anemia; E87.1 Hypo-osmolality and hyponatremia; N17.9 Acute kidney failure, unspecified; I48.20 Chronic atrial fibrillation, unspecified; I12.9 Hypertensive chronic kidney disease with stage 1 through stage 4 chronic kidney disease, or unspecified chronic kidney disease; E11.22 Type 2 diabetes mellitus with diabetic chronic kidney disease; N18.3 Chronic kidney disease, stage 3 (moderate); E87.6 Hypokalemia; K31.7 Polyp of stomach and duodenum; T45.515A Adverse effect of anticoagulants, initial encounter; K64.9 Unspecified hemorrhoids; I48.91 Unspecified atrial fibrillation; K62.1 Rectal polyp; Z79.4 Long term (current) use of insulin; Z79.01 Long term (current) use of anticoagulants
CPT/HCPCS: 36415; 36416; 36430; 80048; 80053; 80061; 81003; 81015; 82274; 82533; 82550; 83036; 83690; 83735; 83880; 83930; 83935; 84100; 84300; 84439; 84443; 84484; 85025; 85610; 85730; 86850; 86900; 86901; 88305; 93005; 96361; 96374; 99211; C9113; G0463; J3010; J3430; J3475; J3480; J3490; P9016

== ENCOUNTER 2019-04-24 04:46 | Inpatient (IN) | payer MEDICARE, OTHER ==
[2019-04-24] MEDS ORDERED: Nitroglycerin 2% Ointment 1 INCH/1 GM Packet ONE (05:02)
[2019-04-24 05:12] LABS: #Basophils 0.1 thou/uL (0.0-0.2); #Eosinphils 1.3 thou/uL (0.0-0.7); #Lymphocytes 1.1 thou/uL (1.20-3.40); #Monocytes 0.8 thou/uL (0.11-0.59); #Neutrophils 9.1 thou/uL (1.40-6.50); %Basophils 0.4 % (0.0-1.0); %Eosinophils 10.6 % (0.0-10.0); %Lymphocytes 8.8 % (21.0-51.0); %Monocytes 6.2 % (0.0-10.0); %Neutrophils 74.1 % (42.0-75.0); Hemoglobin 8.5 g/dL (14.0-18.0); Mean Corpuscular HGB CONC 31.8 g/dL (32.0-36.0); Mean Corpuscular Hemoglobin 25.4 pg (27.0-31.0); Mean Corpuscular Volume 79.8 fL (78.0-98.0); Mean Platelet Volume 10.1 fL (7.4-10.4); Platelet Count 232 thou/uL (130-400); RBC Distribution Width 16.6 % (11.5-14.5); Red Blood Cell (RBC) Count 3.36 mill/uL (4.70-6.10); White Blood Cell (WBC) Count 12.3 thou/uL (4.8-10.8)
[2019-04-24 05:31] LABS: Base Excess-Venous 2.4 mmol/L (-2.0 to 3.0); CO2 Tension (PvCO2) 40.9 mmHg (40.0-50.0); Calcium, Ionized 1.04 mmol/L (See Comments:); Chloride 99 mmol/L (98-107); Hemoglobin - Calc 9.1 g/dL (14.0-18.0); Sodium 138 mmol/L (138-145); T. Carbon Dioxide 28.2 mmol/L (22.0-28.0); vO2 Saturation-calc 95.2 % (60.0-85.0)
[2019-04-24 05:32] LABS: ALT (SGPT) 9 U/L (8-55); AST (SGOT) 13 U/L (5-34); Albumin 3.7 g/dL (3.4-4.8); Alkaline Phosphatase 69 U/L (40-110); Anion Gap 12 mmol/L (10-20); BUN (Urea Nitrogen) 8 mg/dL (8.4-25.7); Bilirubin, Total 1.1 mg/dL (0.2-1.2); Calc. Creatinine Clearance 0 mL/min (70-130); Calcium 8.7 mg/dL (7.8-10.44); Carbon Dioxide 29 mmol/L (23-31); Chloride 101 mmol/L (98-107); Estimated GFR-MDRD 81; Globulin 3.8 g/dL (2.4-3.5); Glucose 241 mg/dL (83-110); Potassium 3.3 mmol/L (3.5-5.1); Protein, Total 7.5 g/dL (5.8-8.1); Sodium 139 mmol/L (136-145)
[2019-04-24] MEDS ORDERED: Cefepime 2 GM VIAL ONE (06:17)
--- NOTE | 2019-04-24 07:05 | RAD ---
SINGLE VIEW CHEST: Date: 04/24/2019 COMPARISON: 10/06/17. HISTORY: Dyspnea. FINDINGS: Single view of the chest shows normal sized cardiomediastinal silhouette. Multifocal air space opacit ies are seen in the lungs, consistent with infiltrates. Small bilateral pleural effusions are seen. IMPRESSION: Bilateral pleural effusions and multifocal infiltrates. POS: C
--- NOTE | 2019-04-24 09:41 | CT ---
CT ANGIOGRAM OF CHEST: Date: 04/24/2019 HISTORY: Shortness of breath. Congestive heart failure. Evaluate for pulmonary artery embolism. Possible infil trates. COMPARISON: None. TECHNIQUE: CT angiogram of chest performed in axial plane. Three-dimensional reformatted images submitted for in terpretation. FINDINGS: There appears to be a lipoma along the right aspect of the neck. There is evidence of enlarged left a xillary lymph node, measuring 1.6 x 1.2 cm. Enlarged mediastinal lymph nodes. [employer] lymph no dre measure 1.5 x 2.1 cm and 2.1 x 2.6 cm. Heart is normal in size. Small amount of pericardial fluid. The thoracic aorta and upper abdominal aorta have a normal caliber. No periaortic fat stranding. Visualized upper abdomen is grossly unremarkable for acute pathology. Incompletely evaluated gallblad giovany may demonstrate mild inflammatory change. There is mild fullness in both chaya. Trachea and central bronchi are patent. Patchy ground-glass opacities in the lung parenchyma. Depende nt atelectatic changes versus aspiration or pneumonia involving both lower lobes. There are adjacent moderate bilateral pleural effusions. LUNG NODULES: Right Lun.8 x 0.6 cm solid nodule in right lower lobe. 0.9 x 0.7 cm solid nodule in the right lo wer lobe. 0.6 x 0.6 cm solid nodule in the right lower lobe. Left Lung: Slightly spiculated solid mass in the left upper lobe measuring 1.7 x 1.5 cm. Additional solid nodules in the left upper lobe measuring 0.5 x 0.5 and 0.4 x 0.5 cm. Solid nodule in the left l ower lobe measures 0.7 x 0.5 cm. There are no lytic or blastic lesions in the osseous structures. Adequate contrast opacification of the pulmonary arterial system to the level of the segmental arteri es. No filling defect to suggest thromboembolism. IMPRESSION: 1. No evidence of pulmonary artery embolism to level of segmental arteries. 2. Bilateral pleural effusions with bibasilar consolidation, which may represent atelectasis, aspira tion, or pneumonia. 3. Multiple solid nodules in the lung parenchyma, worrisome for malignancy/metastasis. There is also evidence of mediastinal lymphadenopathy, as well as left axillary lymphadenopathy. 4. Possible inflammatory change involving the gallbladder, incompletely evaluated. CODE LN. POS: [facility]
[2019-04-24 10:11] LABS: Troponin I 0.045 ng/mL (< 0.028)
[2019-04-24] MEDS ORDERED: Acetaminophen 325 MG TAB PO PRN (10:47)
[2019-04-24] MEDS ORDERED: HYDROcodone/Acetaminophen 5/325 mg Tablet PO PRN (10:47)
[2019-04-24] MEDS ORDERED: Guaifenesin DM 100-10/5 ML UDCUP PO PRN (10:47)
[2019-04-24] MEDS ORDERED: Dextrose 5% in Water 1,000 ML IV PRN (10:47)
[2019-04-24] MEDS ORDERED: Bisacodyl 10 MG SUPP PR PRN (10:47)
[2019-04-24] MEDS ORDERED: Dextrose 50% Abboject 50 ML SYRINGE SLOW IVP PRN (10:47)
[2019-04-24] MEDS ORDERED: Iopamidol 370 76% 100 ML VIAL ONE (12:38)
[2019-04-24] MEDS: Levofloxacin 750 mg/D5W 500 MG in Premix Bag 1 BAG IVPB SCH (12:55)
--- NOTE | 2019-04-24 14:03 | HP ---
REASON FOR ADMISSION: CHF exacerbation, pneumonia, lung mass for further evaluation. HISTORY OF PRESENTING ILLNESS: The patient gives history of having shortness of breath from last night. The patient states his lower extremity edema is coming down from last 3 weeks. This was worse with blistering 3 weeks back. He normally ambulates with a cane or walker. No complaints of chest pain, fever, or palpitations. No complaints of expectoration, and cough is mostly dry. The patient has been told that he has sleep apnea and has never had a sleep study in the past. Last stress test was more than 3 years ago. He is scheduled for an echo on in Dr. Dickens's office. PAST MEDICAL AND SURGICAL HISTORY: Diabetes mellitus type 2, history of CHF, history of chronic atrial fibrillation, benign prostatic hypertrophy, dyslipidemia, history of right colon resection, umbilical hernia repair, history of vasectomy. CURRENT MEDICATIONS: The patient is on; 1. Carvedilol 12.5 mg twice daily. 2. Janumet mg twice daily. 3. Atorvastatin 10 mg daily. 4. Cardizem CD 180 mg p.o. daily. 5. Flomax extended release 0.4 mg daily. 6. Avodart 0.5 mg p.o. daily. 7. Trulicity once weekly. 8. Pradaxa 150 mg twice daily. ALLERGIES: NO KNOWN DRUG ALLERGIES. PERSONAL HISTORY: Does not abuse alcohol or drugs. No history of smoking. FAMILY HISTORY: Mother at the age of 67, she has had history of pancreatic cancer. Father at the age of 71, he had a respiratory issue and was on oxygen as far as he knows, he also had history of prostate cancer. CODE STATUS: Full. 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 REVIEW OF SYSTEMS: CONSTITUTIONAL: Negative for weight loss or gain, ability to conduct usual activities. SKIN: Negative for rash, itching. EYES: Negative for double vision, pain. ENT/MOUTH: Negative for nose bleeding, neck stiffness, pain, tenderness. CARDIOVASCULAR: Negative for palpitations, dyspnea on exertion, orthopnea. RESPIRATORY: Negative for shortness of breath, wheezing, cough, hemoptysis, fever or night sweats. GASTROINTESTINAL: Negative for poor appetite, abdominal pain, heartburn, nausea , vomiting, constipation, or diarrhea. GENITOURINARY: Negative for urgency, frequency, dysuria, nocturia. MUSCULOSKELETAL: Negative for pain, swelling. NEUROLOGIC/PSYCHIATRIC: Negative for anxiety, depression. ALLERGY/IMMUNOLOGIC: Negative for skin rash, bleeding tendency. PHYSICAL EXAMINATION: GENERAL: The patient is a 73-year-old male, who was on BiPAP and has been weaned down to 4 L nasal cannula now. VITAL SIGNS: Blood pressure 158/86, pulse 100 per minute, respiratory rate 22 per minute, temperature 98.7 degrees Fahrenheit, saturating 94% on 4 L nasal cannula. NECK: Supple. There is elevated JVD. HEENT: Eyes; extraocular muscles are intact. Pupils reacting to light. Oral cavity, mucous membranes are dry. No exudates or congestion. CARDIOVASCULAR: S1 and S2 heard, irregular rhythm. RESPIRATORY: Air entry 1+ bilateral. Scattered rales plus, rhonchi plus. ABDOMEN: Soft. Bowel sounds are heard. No tenderness, rigidity, or guarding. EXTREMITIES: The patient has had prior blistering in both lower extremities, which are scabbed up at present. He still has around 2+ peripheral edema. No calf tenderness. VASCULAR: Peripheral pulses 1+ bilateral. No ischemic ulcerations or gangrene. CENTRAL NERVOUS SYSTEM: No gross focal deficits noted. The patient is alert and oriented well. PSYCHIATRIC: The patient's mood is euthymic. No hallucinations or delusions. IMAGING STUDIES: CT angio chest done, showed no evidence of PE. Bilateral pleural effusions with bibasilar consolidations seen. There are multiple solid nodules in the lung parenchyma worrisome for malignancy/metastasis. There is also mediastinal lymphadenopathy and left axillary lymphadenopathy. There is questionable inflammation of the gallbladder, which is incompletely seen. EKG done shows atrial fibrillation at 107 beats per minute. There is LBBB seen. LABORATORY DATA: Hemoglobin and hematocrit 8.5 and 26, platelet count is 232, MCV is 79, white count of 12.3 with 74% neutrophils. Venous blood gas done shows a pH 7.42, pCO2 of 40, PO2 of 74. Potassium 3.0, BUN is 8, creatinine 0.9, serum bicarb 29, serum glucose 241. Liver enzymes within normal limits. BNP is 247. Albumin is 3.7. CEA levels are 3.5. CLINICAL IMPRESSION AND PLAN: The patient was initially supposed to be going to [facility], but has done well and is off BiPAP now and is on 4 L nasal cannula at present. He can be transferred down to medical floor. We will place him on cefepime and Levaquin. We will continue carvedilol, low-dose Lipitor, Cardizem CD, ferrous sulfate, Lantus 15 units subcu twice daily, DuoNeb q.6 hourly, and Flomax as before. I have consulted Dr. Dominguez for Pulmonology. He will be on clear liquid diet for now and we will slowly advance his diet to heart healthy 1800 kilocalorie diet. We will obtain CT of the abdomen and pelvis for findings of mass and the solid lesions in the lungs suspicious for metastasis to find the primary. Echo with 2D Doppler for current LV function will be obtained. We will consult Dr. Dickens's, his primary manager acquisition, during his stay here. The patient has multiple medical issues at present. Code status was discussed with him and he wants to be a full code. We will also obtain ultrasound of the right upper quadrant to rule out cholecystitis. The patient likely has some amount of ascites and we will obtain ultrasound of the right upper quadrant to make sure the patient does not have any acute cholecystitis. Job ID: [id number] MTDD
--- NOTE | 2019-04-24 14:45 | ULT ---
ABDOMINAL ULTRASOUND HISTORY: Ascites and pleural effusions shortness of breath. Edema and lower extremities. FINDINGS: Liver: Enlarged in craniocaudal dimensions with measurement of 21.5 cm obtained on sonographic evalua tion. No focal hepatic lesion is appreciated. Gallbladder: There are shadowing echogenic foci seen layering dependently within the gallbladder lume n suggesting gallbladder calculi with probable nonshadowing echogenic material related to sludge. The gallbladder wall is irregular and thickened with the gallbladder wall measuring just greater than a centimeter in regions of the irregular wall thickening. No definite pericholecystic fluid is present, but these findings could be related to cholecystitis in the correct clinical scenario. Hepat obiliary study may be helpful for further evaluation. Common duct: Common duct is normal in caliber measuring 0.2 cm in diameter. Pancreas: Obscured by bowel gas. IVC: Limited visualized IVC has a normal sonographic appearance. Aorta: Majority of the abdominal aorta is obscured. Only a limited portion of the proximal abdominal aorta is visualized which is normal in caliber. Spleen: Within normal limits. Kidneys: Kidneys demonstrate a normal sonographic appearance bilaterally with the right kidney measur ing 12.6 cm in length, and the left kidney measures 13.6 cm in length. Bilateral pleural effusions are identified. IMPRESSION: 1. Irregular edematous and thickened gallbladder wall with gallbladder calculi as well as sludge. Fin dings could be related to cholecystitis in the correct clinical scenario. If indicated, hepatobiliary study could be performed for further evaluation. 2. Bilateral pleural effusions. 3. Enlargement of the liver in craniocaudal dimensions.
[2019-04-24] MEDS ORDERED: Furosemide 40 MG/4 ML VIAL ONE (15:01)
[2019-04-24] MEDS: Furosemide 40 MG/4 ML VIAL SLOW IVP SCH (15:06)
[2019-04-24] MEDS: Ondansetron PF 4 MG/2 ML Vial IVP PRN (18:32)
[2019-04-24] MEDS: Diltiazem 125 MG in Sodium Chloride 0.9% 100 ML IVPB SCH (19:36)
[2019-04-24] MEDS: Senokot S 8.6-50 MG TAB PO SCH (21:19)
[2019-04-24] MEDS: Famotidine 20 MG TAB PO SCH (21:19)
[2019-04-24] MEDS: Carvedilol 3.125 MG TAB PO SCH (21:20)
[2019-04-24] MEDS: Ferrous Sulfate 325 MG TAB PO SCH (21:20)
[2019-04-24] MEDS: Cefepime 1 GM in Sodium Chloride 0.9% 100 ML IVPB SCH (21:27)
[2019-04-24] MEDS: methylPREDNISolone Sod Succ 40 MG VIAL IVP SCH (21:39)
[2019-04-24] MEDS: Insulin Glargine 15 UNITS in Pre-Filled Syringe 1 EACH SC SCH (22:00)
--- NOTE | 2019-04-24 23:00 | CON ---
DATE OF CONSULTATION: HISTORY OF PRESENT ILLNESS: Kadeem Harkins is a 73-year-old morbidly obese gentleman, who came to the ER with shortness of breath. He can barely walk on a good day 20 feet without getting markedly dyspneic. He smoked in the past, but quit smoking years ago. He has generalized anasarca and lower extremity swelling. Denies any fever or chills. He also is complaining of some abdominal pain. He had an ultrasound done of his abdomen, which showed a thickened gallbladder, bilateral pleural effusion, enlarged liver. An x-ray shows large volume of pleural effusion, cardiomegaly. He then underwent a CT of his chest, which showed a spiculated left lower lung lesion. Additionally, there were nonspecific nodules in left upper lobe. Evidence of bilateral pleural effusion, consolidation atelectasis. Multiple solid lung nodules and mediastinal adenopathy. He has seen Dr. Donis only in the hospital, but not in the office. These lesions are apparently seen on the CT, has not been mentioned to the patient in the past. There was no evidence of pulmonary emboli on the CT. PAST MEDICAL HISTORY: Congestive heart failure, severe deconditioning, hypertension, chronic atrial fibrillation, diabetes. PAST SURGICAL HISTORY: Right colon resection, umbilical hernia repair. HOME MEDICATIONS: Includes; 1. Metformin. 2. Janumet. 3. Amlodipine. 4. Flomax 0.4. 5. Potassium 20. 6. Actos 15. 7. Protonix 40. 8. Avodart 0.5. 9. Cardizem XL 180. 10. Pradaxa b.i.d. 150. 11. Coreg 6.25 twice a day. ALLERGIES: NONE. REVIEW OF SYSTEMS: Otherwise unremarkable, he may have sleep apnea, but he has never been tested. PHYSICAL EXAMINATION: GENERAL: Morbidly obese gentleman with sats on 2 L 92%, pulse 80, blood pressure . EXTREMITIES: 2+ ankle edema with chronic stasis. CHEST: Decreased breath sounds bilaterally with crackles. No wheezing. CARDIAC: Atrial fibrillation. ABDOMEN: Massive, soft. LABORATORY DATA: Additional lab noted white count 12,000, H and H 8 and 26, platelet count is 232. His creatinine is normal. Glucose 241. BNP 247. IMPRESSION: 1. Morbidly obese, respiratory failure, congestive heart failure, bilateral pleural effusion. 2. Bilateral lung nodules, etiology unclear. 3. Remote history of tobacco abuse. 4. Diabetes, probably sleep apnea. 5. Severe deconditioning. I agree with transition to telemetry. He was on BiPAP. He has been offered tolerating low-flow O2. I gave him steroids, neb treatment, and Lasix. Cardiology input. We will notify Dr. Donis. Regarding his lung nodules, workup at a later time. Consultation note, 70 minutes, 50% direct patient care. Job ID: [id number]
[2019-04-25 05:17] LABS: #Lymphocytes 0.7 thou/uL (1.20-3.40); #Monocytes 0.1 thou/uL (0.11-0.59); #Neutrophils 4.7 thou/uL (1.40-6.50); %Eosinophils 0.5 % (0.0-10.0); %Lymphocytes 12.7 % (21.0-51.0); %Monocytes 1.9 % (0.0-10.0); %Neutrophils 84.9 % (42.0-75.0); Hemoglobin 8.2 g/dL (14.0-18.0); Mean Corpuscular HGB CONC 31.8 g/dL (32.0-36.0); Mean Corpuscular Hemoglobin 25.6 pg (27.0-31.0); Mean Corpuscular Volume 80.5 fL (78.0-98.0); Mean Platelet Volume 10.4 fL (7.4-10.4); Platelet Count 198 thou/uL (130-400); RBC Distribution Width 16.7 % (11.5-14.5); White Blood Cell (WBC) Count 5.5 thou/uL (4.8-10.8)
[2019-04-25 05:23] LABS: Anion Gap 14 mmol/L (10-20); BUN (Urea Nitrogen) 8 mg/dL (8.4-25.7); Calc. Creatinine Clearance 126 mL/min (70-130); Calcium 8.5 mg/dL (7.8-10.44); Carbon Dioxide 30 mmol/L (23-31); Chloride 97 mmol/L (98-107); Estimated GFR-MDRD Greater than 90; Glucose 239 mg/dL (83-110); Potassium 3.2 mmol/L (3.5-5.1); Sodium 138 mmol/L (136-145)
[2019-04-25] MEDS: Furosemide 40 MG/4 ML VIAL SLOW IVP SCH ×2 (05:43→14:03)
[2019-04-25] MEDS: methylPREDNISolone Sod Succ 40 MG VIAL IVP SCH ×2 (05:44→14:03)
[2019-04-25] MEDS: Famotidine 20 MG TAB PO SCH ×2 (09:11→21:34)
[2019-04-25] MEDS: Tamsulosin HCl 0.4 MG CAP PO SCH (09:11)
[2019-04-25] MEDS: Atorvastatin Calcium 10 MG TAB PO SCH (09:11)
[2019-04-25] MEDS: Dutasteride 0.5 MG CAP PO SCH (09:11)
[2019-04-25] MEDS: Cefepime 1 GM in Sodium Chloride 0.9% 100 ML IVPB SCH ×2 (09:12→21:33)
[2019-04-25] MEDS: Ferrous Sulfate 325 MG TAB PO SCH ×2 (09:12→21:34)
[2019-04-25] MEDS: Carvedilol 3.125 MG TAB PO SCH ×2 (09:12→21:34)
[2019-04-25] MEDS: Senokot S 8.6-50 MG TAB PO SCH ×2 (09:13→21:34)
[2019-04-25] MEDS: Insulin Glargine 15 UNITS in Pre-Filled Syringe 1 EACH SC SCH ×2 (09:19→21:34)
--- NOTE | 2019-04-25 09:52 | CT ---
CT ABDOMEN AND PELVIS PERFORMED WITH CONTRAST ENHANCEMENT: Date: 04/25/2019 HISTORY: Follow-up mesenteric and pancreatic abnormalities noted on previous CT study, and evaluation for poss ible abdominal primary related to pulmonary nodules noted on recent CT chest. COMPARISON: CT chest dated 04/24/[address] abdomen/pelvis of 10/06/2017. FINDINGS: Large bilateral pleural effusions, right slightly larger than left are noted. Pulmonary nodules are again demonstrated and there are atelectatic changes in the lung bases. Liver shows no focal discrete lesion. The spleen is within normal limits of size. Approximately 1.5 c m cystic lesion of the pancreatic tail not felt to have appreciably changed. The gallbladder is diste nded with some questionable wall thickening, or this may just represent some sludge within the gallbl adder. It is difficult to assess for inflammatory change as there is some minimal ascites present. Right and left adrenal glands, and right and left kidneys are normal in appearance. There are no sign ificantly enlarged periaortic lymph nodes. There are some small aortocaval lymph nodes. These are all subcentimeter in size, but have subtly increased in size and number as compared to the previous exam . Largest of these measures 13.0 mm in maximum dimension as compared to 8-9 mm on the prior study. Sm all nodes directly anterior to the lower abdominal aorta are also subtle increased in size. This is s till fairly nonspecific. The partially calcified mesenteric mass in the right lower quadrant shows st able appearance to the calcified component. There are two small nodular components directly adjacent to this that have subtly increased in size. One now measures 1.5 cm as compared to 1.0 cm, and the ot her measures 2.0 cm as compared to 1.[address] of pelvis was performed with contrast enhancement. No signs of any pelvic mass. There is a right c ommon iliac node which is increased in size. It has some central decreased attenuation. It measures 1 0.0 mm as compared to 5-6 mm on the prior study. Left inguinal nodes are also slightly more prominent than on the prior exam. Review of osseous structures show marked arthritic changes of the spine. Postoperative changes of the right colon are noted. IMPRESSION: 1. Large bilateral pleural effusions with pulmonary nodules again demonstrated. 2. There is a calcified mesenteric mass. It has two nodular soft tissue components, which as describ ed above have subtly increased in size. There is also some increase in size and number of some small aortocaval nodes and a right common iliac node. None of these are significantly enlarged, but this is a definite interval increase. 3. 1.5 cm cystic lesion in the pancreatic tail. 4. Distended gallbladder. Questionable sludge or gallbladder wall thickening. Ultrasound would be miguel ggested for further assessment. 5. A definite primary source or explanation for the pulmonary nodules are not definitely evident, al though the possibility that this represents a carcinoid lesion would still have to be considered give n the subtle increase in size of the partially calcified mesenteric mass. POS: [facility]
[2019-04-25] MEDS: HumaLOG 300 UNITS/3 ML VIAL SC PRN ×2 (11:21→17:28)
[2019-04-25] MEDS: Levofloxacin 750 mg/D5W 500 MG in Premix Bag 1 BAG IVPB SCH (11:21)
--- NOTE | 2019-04-25 12:11 | CON ---
DATE OF CONSULTATION: HISTORY OF PRESENT ILLNESS: The patient is a 73-year-old gentleman with a history of chronic atrial fibrillation, who presented with lower extremity swelling and dyspnea. The patient has a previous history of atrial fibrillation. He has previously been on Coumadin. He developed a GI hemorrhage and was switched to Pradaxa. The patient was in his usual state of health when he developed having increasing dyspnea. The patient denied having any chest discomfort. He was admitted with severe lower extremity edema. PAST MEDICAL HISTORY: 1. Atrial fibrillation. 2. Hypertension. 3. BPH. PAST SURGICAL HISTORY: He has had colon surgery. SOCIAL HISTORY: Nonsmoker. FAMILY HISTORY: No strong family history of heart disease. ALLERGIES: NO KNOWN DRUG ALLERGIES. MEDICATIONS: See nursing list. REVIEW OF SYSTEMS: 10-point system otherwise unremarkable. PHYSICAL EXAMINATION: GENERAL: This is an obese gentleman, in no acute distress. VITAL SIGNS: Blood pressure 133/93, heart rate is 140. NECK: Showed jugular venous distention to the jaw. LUNGS: Have decreased breath sounds bilateral. HEART: Irregular rate and rhythm. Normal S1 and S2. ABDOMEN: Markedly distended. EXTREMITIES: Show severe bilateral edema. LABORATORY RESULTS: White blood cell count 5.5, hemoglobin 8.2, hematocrit 25.8, platelet 198. Sodium 138, potassium 3.2, chloride 97, bicarbonate 30, BUN 8, and creatinine 0.81. His EKG revealed atrial fibrillation with rapid ventricular response and left bundle-branch block. IMPRESSION: 1. Atrial fibrillation with rapid ventricular response. 2. Anasarca. 3. Hypertension. 4. Diabetes mellitus. 5. History of gastrointestinal hemorrhage. 6. Probable metastatic carcinoma. PLAN: This gentleman has undergone a CT of the chest and abdomen, which revealed possible metastatic carcinoma. The patient is in atrial fibrillation with rapid ventricular response. At this time, we will increase the dose of his Cardizem. We will also start the patient on digoxin. We will follow this patient with you through his hospitalization. Job ID: [id number]
[2019-04-25] MEDS: Digoxin 0.5 MG/2 ML AMP SLOW IVP SCH ×3 (12:26→17:27)
[2019-04-25] MEDS ORDERED: Iopamidol 370 76% 100 ML VIAL ONE (12:56)
[2019-04-25] MEDS: Diltiazem 125 MG in Sodium Chloride 0.9% 100 ML IVPB SCH (14:03)
--- NOTE | 2019-04-25 16:34 | PDOC.HOSPP ---
- Subjective Encounter Date: 04/25/19 Encounter Time: 11:00 Subjective: breathing better this am, feels a whole lot better than yesterday no chest pain - Objective Vital Signs & Weight: Vital Signs (12 hours) Temp Pulse Pulse Pulse Resp BP BP 04/25/19 15:34 105 H 04/25/19 13:23 105 H 20 04/25/19 12:26 130 H 04/25/19 11:20 98.3 F 130 H 20 04/25/19 09:06 135 H 125 H 153/66 H 136/78 04/25/19 08:00 98.4 F 107 H 18 04/25/19 07:20 04/25/19 07:17 101 H 20 BP Pulse Ox 04/25/19 15:34 04/25/19 13:23 95 04/25/19 12:26 04/25/19 11:20 111/69 90 L 04/25/19 09:06 04/25/19 08:00 133/93 H 96 04/25/19 07:20 96 04/25/19 07:17 96 Weight Admit Weight 244 lb 9 oz Weight 242 lb 4 oz I&O: 04/24/19 04/25/19 04/26/19 06:59 06:59 06:59 Intake Total 240 Output Total 1350 1140 Balance -1110 -1140 Result Diagrams: 04/25/19 04:36 04/25/19 04:36 Additional Labs: Accuchecks 04/25/19 04/25/19 04/24/19 10:55 05:48 20:29 POC Glucose 360 H 258 H 191 H 04/24/19 18:09 POC Glucose 203 H Hospitalist ROS - Medication Medications: Active Medications Generic Name Dose Route Start Last Admin Trade Name Freq PRN Reason Stop Dose Admin Albuterol/Ipratropium 3 ml 04/24/19 13:00 04/25/19 13:23 Duoneb NEB 3 ml [id number] SONIA Administration Atorvastatin Calcium 10 mg 04/25/19 09:00 04/25/19 09:11 Lipitor PO 10 mg DAILY SONIA Administration Carvedilol 3.125 mg 04/24/19 21:00 04/25/19 09:12 Coreg PO 3.125 mg BID SONIA Administration Diltiazem HCl 180 mg 04/25/19 09:00 04/25/19 09:11 Cardizem Cd PO 180 mg DAILY [facility] Administration Dutasteride 0.5 mg 04/25/19 09:00 04/25/19 09:11 Avodart PO 0.5 mg DAILY [facility] Administration Famotidine 20 mg 04/24/19 21:00 04/25/19 09:11 Pepcid PO 20 mg BID [facility] Administration Ferrous Sulfate 325 mg 04/24/19 21:00 04/25/19 09:12 Feosol PO 325 mg BID SONIA Administration Furosemide 40 mg 04/24/19 14:00 04/25/19 14:03 Lasix SLOW IVP 40 mg 0600,1400 SONIA Administration Cefepime HCl 1 gm/ Sodium 100 mls @ 200 mls/hr 04/24/19 21:00 04/25/19 09:12 Chloride IVPB 100 mls Q12HR SONIA Administration Insulin Glargine 15 units/ 0.15 mls @ 0 mls/hr 04/24/19 21:00 04/25/19 09:19 Miscellaneous Medication SC 0.15 mls BID SONIA Administration Levofloxacin 500 mg/ Device 100 mls @ 100 mls/hr 04/24/19 12:00 04/25/19 11: 21 IVPB 100 mls 1200 SONIA Administration Diltiazem HCl 125 mg/ Sodium 125 mls @ 10 mls/hr 04/24/19 17:45 04/25/19 14: 03 Chloride IVPB 125 mls INF SONIA Administration Protocol Insulin Human Lispro 0 units 04/24/19 10:47 04/25/19 11:21 Humalog SC 10 unit .MODERATE SLIDING SC PRN Administration Moderate Correctional Scale Ondansetron HCl 4 mg 04/24/19 10:47 04/24/19 18:32 Zofran IVP 4 mg Q6H PRN Administration Nausea/Vomiting Senna/Docusate Sodium 2 tab 04/24/19 21:00 04/25/19 09:13 Senokot S PO Not Given BID [facility] Tamsulosin HCl 0.4 mg 04/25/19 09:00 04/25/19 09:11 Flomax PO 0.4 mg DAILY [facility] Administration - Exam General Appearance: awake alert Eye: PERRL, anicteric sclera ENT: no oropharyngeal lesions, moist mucosa Neck: supple, no JVD Heart: no murmur, irregular Respiratory: no wheezes, no rales, rhonchi Gastrointestinal: soft, non-tender, non-distended, normal bowel sounds Extremities: no cyanosis, 2+ LE edema Neurological: cranial nerve grossly intact, no focal deficits Psychiatric: A&O x 3 Hosp A/P (1) Atrial fibrillation Code(s): I48.91 - UNSPECIFIED ATRIAL FIBRILLATION Status: Acute (2) Lung nodule, multiple Status: Acute (3) PNA (pneumonia) Code(s): J18.9 - PNEUMONIA, UNSPECIFIED ORGANISM Status: Acute Qualifiers: Pneumonia type: due to unspecified organism (4) Acute respiratory failure with hypoxia Code(s): J96.01 - ACUTE RESPIRATORY FAILURE WITH HYPOXIA Status: Acute (5) Acute exacerbation of CHF (congestive heart failure) Code(s): I50.9 - HEART FAILURE, UNSPECIFIED Status: Acute Qualifiers: Heart failure type: systolic Qualified Code(s): I50.23 - Acute on chronic systolic (congestive) heart failure (6) DM type 2 (diabetes mellitus, type 2) Status: Chronic Qualifiers: Diabetes mellitus 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 insulin use: with shelter use (7) Chronic anemia Code(s): D64.9 - ANEMIA, UNSPECIFIED Status: Chronic (8) Hypertension Code(s): I10 - ESSENTIAL (PRIMARY) HYPERTENSION Status: Chronic Qualifiers: Hypertension type: essential hypertension Qualified Code(s): I10 - Essential (primary) hypertension (9) Obesity (BMI 30.0-34.9) Code(s): E66.9 - OBESITY, UNSPECIFIED Status: Chronic (10) Hypokalemia Code(s): E87.6 - HYPOKALEMIA Status: Chronic - Plan wound care for dried thickened skin with prior blistering due to edema is on cefepime and levaquin, will switch to oral antibiotics in am dc steroids is on cardizem drip, coreg, digoxin, lasix 40mg iv 6am and 2pm, aspirin anticoagulation is held for possible biopsy of his lymph nodes or mesenteric mass by has multiple lymph nodes, spiculated nodule lung, mediastinal nodes and calcified (partially) mesenteric mass...?malignancy dm will likely get better by am as he is off steroids now to ambulate as tolerated d/w patient and at bedside prognosis guarded if his biopsy turns out +ve for malignancy
--- NOTE | 2019-04-26 00:56 | CON ---
DATE OF CONSULTATION: HISTORY OF PRESENT ILLNESS: Kadeem Harkins is a 73-year-old male, admitted to the hospitalist for his dyspnea. He is in RVR, atrial fibrillation, and seen by Dr. Dickens. He has a history of atrial fibrillation and has been on Pradaxa. He has congestive heart failure. Last EF 35% to 40% He had a CAT scan of chest, CTA of abdomen and pelvis. These revealed in the abdomen, stable calcified mass in the mesentery, unchanged from previously, less than 2 cm, sub-1 cm to 1.5 cm with subtle possible change relative to past CAT scan, but these are equivocal in size and not significant enough to biopsy. He has a stable 1.5 cm mass in the tail of the pancreas, this has been unchanged relative to the past scans and is probably benign. He has a spiculated lung nodule with mediastinal lymphadenopathy of more significance. He quit smoking in the 60s. I have talked to Dr. Guerrero, who recommended that the Pulmonary Medicine see him in regard to his lung nodule. As far as the equivocal lymph nodes mesentery, I do not think it is significant and I do not think it worth a general anesthetic to attempt biopsies. Exams of neck, axilla, groins reveal absence of any significant lymphadenopathy. ALLERGIES: NONE. SOCIAL HISTORY: Tobacco, none since 1960s. Alcohol, none. 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 He is . PAST SURGICAL HISTORY: Umbilical hernia repair that I performed in February 2005, IV sedation, local. No mesh. May 16, laparoscopic right colectomy for a sessile polyp. 02/09/2009, EP study, Dr. Posada for atrial fibrillation, SVT. December 2004, electrocardioversion, Dr. Dickens. Pathology from the right colectomy, TVA without invasive cancer. PAST MEDICAL HISTORY: BPH, diabetes mellitus type 2, obesity, congestive heart failure, history of chronic atrial fibrillation, on anticoagulation, chronic venous stasis disease with ulcerations. MEDICATIONS: 1. Carvedilol. 2. Janumet. 3. Atorvastatin. 4. Cardizem. 5. Flomax. 6. Avodart. 7. Trulicity. 8. Pradaxa 150 mg twice a day. PHYSICAL EXAMINATION: VITAL SIGNS: Height 6 feet 2 inches, weight 242 pounds, BMI 31. Heart rate 105, respiratory rate 20, blood pressure 111/69. HEAD, EARS, EYES, NOSE AND THROAT: Unremarkable. LUNGS: Clear to auscultation. CARDIAC: Irregularly irregular. ABDOMEN: Soft, obese, nontender. Umbilical hernia repair is intact. Scars per past laparoscopic right colectomy. EXTREMITIES: Chronic venous stasis disease with some ulcerations and bilateral edema. LABORATORY DATA: White count 5, hemoglobin 8.2, potassium 3.2, sodium 138, BUN 8, creatinine 0.81. ASSESSMENT AND PLAN: 1. Dyspnea, atrial fibrillation, rapid ventricular response. Treatment per Medical and Cardiology. Dr. Dickens is seeing him. 2. Nonspecific abdominal findings, it is not worth a general anesthetic to do a lymph node biopsy. These nodes are equivocal and probably benign and not worth biopsying. 3. Benign distal splenic 1.5 cm cyst, stable from past CT scan. Observe. 4. No palpable lymphadenopathy in neck, axilla, and groins. 5. Enlarged mediastinal nodes, 1.5 x 2.1 and 2.1 x 2.6, these are plain, more significant. Equivocal left axillary node, 1.6 x 1.2 cm, fullness in both chaya. Right lung nodule 0.8 x 0.6 cm solid, 0.9 x 0.7 cm solid nodule in the right lower lobe, 0.6 x 0.6 solid nodule in the right lower lobe. Left lung, slightly spiculated solid mass in the left upper lobe, 1.7 x 1.5 cm. Additional small nodules in left upper lobe and left lower lobe. 6. No evidence of pulmonary embolism. 7. Diabetes mellitus. 8. Hypertension. 9. Cardiomyopathy, congestive heart failure. 10. Chronic venous stasis disease. Job ID: [id number]
[2019-04-26 05:15] LABS: Anion Gap 12 mmol/L (10-20); BUN (Urea Nitrogen) 13 mg/dL (8.4-25.7); Calc. Creatinine Clearance 107 mL/min (70-130); Calcium 8.4 mg/dL (7.8-10.44); Carbon Dioxide 33 mmol/L (23-31); Chloride 94 mmol/L (98-107); Estimated GFR-MDRD 77; Glucose 309 mg/dL (83-110); Potassium 3.1 mmol/L (3.5-5.1); Sodium 136 mmol/L (136-145)
[2019-04-26] MEDS: Furosemide 40 MG/4 ML VIAL SLOW IVP SCH (06:05)
--- NOTE | 2019-04-26 07:39 | PRG ---
DATE OF SERVICE: 04/25/2019 SUBJECTIVE: Mr. Harkins is a gentleman who presented with anasarca. We were consulted. He was seen by my associate yesterday. OBJECTIVE: VITAL SIGNS: Today he is afebrile, heart rate is 96, respiratory rate is 18, oximetry is 96% on 2 L, blood pressure 164/69. LUNGS: Clear. HEART: Regular rhythm. No S3, in atrial fibrillation. ABDOMEN: Soft and nontender. 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 LABORATORY DATA: White count 5.5, hemoglobin 8.2, platelets 198. Sodium 138, potassium 3.2, chloride 97, bicarb 30, BUN 8, creatinine 0.81. DIAGNOSTIC DATA: chest CT and his abdomen CT. IMPRESSION: 1. Multiple small pulmonary nodules, statistically more likely to be granulomatous disease and malignant. 2. Small lymph nodes seen on abdomen and pelvis CT. Significance of these is unclear. None of these are huge. 3. They are all around 1 or just over 1 cm, biggest one is 2 cm. This is debatable whether or not these are pathologically enlarged. 4. He does have bilateral effusions which statistically is most likely related to his heart and calcified mesenteric density. It may have increased in size, but this is over almost 2-year period of time. 5. Pulmonary function at this time appears stable. We will consult with the other physicians and follow along with other doctors caring for him. Job ID: [id number]
[2019-04-26] MEDS ORDERED: Dabigatran 150 mg Capsule PO SCH ×2 (09:17→09:45)
[2019-04-26] MEDS ORDERED: Metolazone 5 MG TAB PO SCH ×2 (09:18→09:30)
[2019-04-26] MEDS ORDERED: Furosemide 40 MG/4 ML VIAL SLOW IVP SCH (09:18)
[2019-04-26] MEDS: Digoxin 0.25 MG TAB PO SCH (10:02)
[2019-04-26] MEDS: Cefepime 1 GM in Sodium Chloride 0.9% 100 ML IVPB SCH ×2 (10:02→22:15)
[2019-04-26] MEDS: Famotidine 20 MG TAB PO SCH ×2 (10:04→22:14)
[2019-04-26] MEDS: Senokot S 8.6-50 MG TAB PO SCH ×2 (10:04→22:15)
[2019-04-26] MEDS: Atorvastatin Calcium 10 MG TAB PO SCH (10:05)
[2019-04-26] MEDS: Ferrous Sulfate 325 MG TAB PO SCH ×2 (10:05→22:15)
[2019-04-26] MEDS: Tamsulosin HCl 0.4 MG CAP PO SCH (10:06)
[2019-04-26] MEDS: Dutasteride 0.5 MG CAP PO SCH (10:06)
[2019-04-26] MEDS: Insulin Glargine 15 UNITS in Pre-Filled Syringe 1 EACH SC SCH ×2 (10:08→22:16)
[2019-04-26] MEDS: HumaLOG 300 UNITS/3 ML VIAL SC PRN ×4 (10:08→22:17)
[2019-04-26] MEDS: Carvedilol 3.125 MG TAB PO SCH (10:19)
[2019-04-26] MEDS ORDERED: Fentanyl 100 MCG/2 ML VIAL ONE (10:49)
[2019-04-26 11:44] LABS: Platelet Count 205 thou/uL (130-400)
[2019-04-26] MEDS: Levofloxacin 750 mg/D5W 500 MG in Premix Bag 1 BAG IVPB SCH (12:27)
[2019-04-26] MEDS ORDERED: Potassium Chloride 20 MEQ TAB PO SCH ×2 (13:00→17:00)
--- NOTE | 2019-04-26 13:01 | PDOC.HOSPP ---
- Subjective Encounter Date: 04/26/19 Encounter Time: 09:45 Subjective: no sob, feels better - Objective Vital Signs & Weight: Vital Signs (12 hours) Temp Pulse Resp BP Pulse Ox 04/26/19 11:21 98.1 F 75 18 162/77 H 98 04/26/19 10:02 69 04/26/19 08:00 98.3 F 84 16 138/62 99 04/26/19 07:11 94 L 04/26/19 07:09 87 16 94 L 04/26/19 04:56 97.4 F L 82 16 152/72 H 92 L Weight Admit Weight 244 lb 9 oz Weight 244 lb I&O: 04/25/19 04/26/19 04/27/19 06:59 06:59 06:59 Intake Total 240 1050 300 Output Total 1350 2140 Balance -1110 -1090 300 Result Diagrams: 04/26/19 11:24 04/26/19 04:02 Additional Labs: Accuchecks 04/26/19 04/26/19 04/26/19 12:38 10:50 05:38 POC Glucose 267 H 353 H 321 H 04/25/19 04/25/19 19:37 16:39 POC Glucose 349 H 297 H Hospitalist ROS - Medication Medications: Active Medications Generic Name Dose Route Start Last Admin Trade Name Freq PRN Reason Stop Dose Admin Albuterol/Ipratropium 3 ml 04/24/19 13:00 04/26/19 07:09 Duoneb NEB 3 ml [id number] SONIA Administration Atorvastatin Calcium 10 mg 04/25/19 09:00 04/26/19 10:05 Lipitor PO 10 mg DAILY SONIA Administration Digoxin 0.25 mg 04/26/19 09:00 04/26/19 10:02 Lanoxin PO 0.25 mg QAM SONIA Administration Diltiazem HCl 180 mg 04/25/19 09:00 04/26/19 10:06 Cardizem Cd PO 180 mg DAILY SONIA Administration Dutasteride 0.5 mg 04/25/19 09:00 04/26/19 10:06 Avodart PO 0.5 mg DAILY SONIA Administration Famotidine 20 mg 04/24/19 21:00 04/26/19 10:04 Pepcid PO 20 mg BID SONIA Administration Ferrous Sulfate 325 mg 04/24/19 21:00 04/26/19 10:05 Feosol PO 325 mg BID SONIA Administration Cefepime HCl 1 gm/ Sodium 100 mls @ 200 mls/hr 04/24/19 21:00 04/26/19 10:02 Chloride IVPB 100 mls Q12HR SONIA Administration Insulin Glargine 15 units/ 0.15 mls @ 0 mls/hr 04/24/19 21:00 04/26/19 10:08 Miscellaneous Medication SC 0.15 mls BID SONIA Administration Levofloxacin 500 mg/ Device 100 mls @ 100 mls/hr 04/24/19 12:00 04/26/19 12: 27 IVPB 100 mls 1200 SONIA Administration Diltiazem HCl 125 mg/ Sodium 125 mls @ 10 mls/hr 04/24/19 17:45 04/25/19 14: 03 Chloride IVPB 125 mls INF SONIA Administration Protocol Insulin Human Lispro 0 units 04/24/19 10:47 04/26/19 12:29 Humalog SC 6 unit .MODERATE SLIDING SC PRN Administration Moderate Correctional Scale Ondansetron HCl 4 mg 04/24/19 10:47 04/24/19 18:32 Zofran IVP 4 mg Q6H PRN Administration Nausea/Vomiting Senna/Docusate Sodium 2 tab 04/24/19 21:00 04/26/19 10:04 Senokot S PO 2 tab BID SONIA Administration Tamsulosin HCl 0.4 mg 04/25/19 09:00 04/26/19 10:06 Flomax PO 0.4 mg DAILY SONIA Administration - Exam General Appearance: awake alert Eye: PERRL, anicteric sclera ENT: no oropharyngeal lesions, moist mucosa Neck: supple, no JVD Heart: no murmur, irregular Respiratory: no wheezes, no rales, rhonchi Gastrointestinal: soft, non-tender, non-distended, normal bowel sounds Extremities: no cyanosis, 2+ LE edema Neurological: cranial nerve grossly intact, no focal deficits Psychiatric: normal affect, A&O x 3 Hosp A/P (1) Acute exacerbation of CHF (congestive heart failure) Code(s): I50.9 - HEART FAILURE, UNSPECIFIED Status: Acute Qualifiers: Heart failure type: systolic Qualified Code(s): I50.23 - Acute on chronic systolic (congestive) heart failure (2) Atrial fibrillation Code(s): I48.91 - UNSPECIFIED ATRIAL FIBRILLATION Status: Acute (3) Lung nodule, multiple Status: Acute (4) PNA (pneumonia) Code(s): J18.9 - PNEUMONIA, UNSPECIFIED ORGANISM Status: Acute Qualifiers: Pneumonia type: due to unspecified organism (5) Acute respiratory failure with hypoxia Code(s): J96.01 - ACUTE RESPIRATORY FAILURE WITH HYPOXIA Status: Resolved (6) DM type 2 (diabetes mellitus, type 2) Status: Chronic Qualifiers: Diabetes mellitus supervisor intermediates insulin use: with supervisor intermediates use (7) Chronic anemia Code(s): D64.9 - ANEMIA, UNSPECIFIED Status: Chronic (8) Hypertension Code(s): I10 - ESSENTIAL (PRIMARY) HYPERTENSION Status: Chronic Qualifiers: Hypertension type: essential hypertension Qualified Code(s): I10 - Essential (primary) hypertension (9) Obesity (BMI 30.0-34.9) Code(s): E66.9 - OBESITY, UNSPECIFIED Status: Chronic (10) Hypokalemia Code(s): E87.6 - HYPOKALEMIA Status: Chronic - Plan wound care for dried thickened skin with prior blistering due to edema is on cefepime and levaquin, will switch to oral antibiotics in am dc steroids is on coreg, digoxin, lasix 80mg iv 6am and 2pm, zaroxolin and aspirin has been restarted on pradaxa from today has multiple lymph nodes, spiculated nodule lung, mediastinal nodes and calcified (partially) mesenteric mass...?malignancy, likely will have outpt w/u. dm will likely get better by am as he is off steroids to ambulate as tolerated d/w patient and at bedside
[2019-04-26] MEDS: Diltiazem 125 MG in Sodium Chloride 0.9% 100 ML IVPB SCH (14:40)
[2019-04-26] MEDS: Furosemide 100 MG/10 ML VIAL SLOW IVP SCH (14:42)
[2019-04-26] MEDS: Carvedilol 6.25 MG TAB PO SCH ×2 (14:56→22:15)
[2019-04-26] MEDS ORDERED: Carvedilol 3.125 MG TAB PO SCH (15:00)
--- NOTE | 2019-04-26 17:21 | PRG ---
DATE OF SERVICE: 04/26/2019 SUBJECTIVE: Mr. Harkins has no new complaints. OBJECTIVE: VITAL SIGNS: He is afebrile. Heart rate is 75, blood pressure 152/67. His oximetry is 98% on 2 L. He needs a room air oximetry checked. LUNGS: Clear. HEART: Regular rhythm. ABDOMEN: Soft. All of his CTs were reviewed. He has multiple pulmonary nodules. The largest of his nodules has smooth margins. He does not have massive lymphadenopathy. He has bilateral pleural effusions, right greater than left. His pleural effusions are overwhelmingly likely to be related to his cardiomyopathy. Pulmonary nodules are most likely related to old granulomatous disease. He is an old smoker. I would recommend PET imaging as an outpatient. Once he is stable and discharged, he can follow up with me and I will arrange PET imaging and proceed based on those results. Hopefully, all these lesions will be PET negative and we will just follow them serially with outpatient CAT scans. I met with his and answered all of her questions. Unfortunately, there are no old CAT scans of the chest to compare to. Job ID: [id number]
[2019-04-26] MEDS: Dabigatran 150 mg Capsule PO SCH (22:16)
[2019-04-27 05:04] LABS: Anion Gap 13 mmol/L (10-20); BUN (Urea Nitrogen) 13 mg/dL (8.4-25.7); Calc. Creatinine Clearance 108 mL/min (70-130); Calcium 8.5 mg/dL (7.8-10.44); Carbon Dioxide 33 mmol/L (23-31); Chloride 90 mmol/L (98-107); Estimated GFR-MDRD 79; Glucose 208 mg/dL (83-110); Sodium 133 mmol/L (136-145)
[2019-04-27 05:09] LABS: Potassium 2.9 mmol/L (3.5-5.1)
[2019-04-27] MEDS: Potassium Chloride 20 MEQ TAB PO SCH ×3 (06:14→21:13)
[2019-04-27] MEDS: Furosemide 100 MG/10 ML VIAL SLOW IVP SCH ×2 (07:22→15:17)
[2019-04-27] MEDS ORDERED: Furosemide 100 MG/10 ML VIAL SLOW IVP SCH (09:00)
[2019-04-27] MEDS: Insulin Glargine 15 UNITS in Pre-Filled Syringe 1 EACH SC SCH (10:01)
[2019-04-27] MEDS: Magnesium Oxide 400 MG TAB PO SCH ×3 (10:03→21:13)
[2019-04-27] MEDS: Cefepime 1 GM in Sodium Chloride 0.9% 100 ML IVPB SCH ×2 (10:03→23:59)
[2019-04-27] MEDS: Dutasteride 0.5 MG CAP PO SCH (10:04)
[2019-04-27] MEDS: Metolazone 5 MG TAB PO SCH (10:04)
[2019-04-27] MEDS: Senokot S 8.6-50 MG TAB PO SCH ×2 (10:05→21:15)
[2019-04-27] MEDS: Atorvastatin Calcium 10 MG TAB PO SCH (10:05)
[2019-04-27] MEDS: Digoxin 0.25 MG TAB PO SCH (10:06)
[2019-04-27] MEDS: Tamsulosin HCl 0.4 MG CAP PO SCH (10:06)
[2019-04-27] MEDS: Ferrous Sulfate 325 MG TAB PO SCH ×2 (10:06→21:14)
[2019-04-27] MEDS: Famotidine 20 MG TAB PO SCH ×2 (10:06→21:14)
[2019-04-27] MEDS: Dabigatran 150 mg Capsule PO SCH (10:09)
[2019-04-27] MEDS: HumaLOG 300 UNITS/3 ML VIAL SC PRN ×3 (10:13→21:16)
[2019-04-27] MEDS: Lisinopril 5 MG TAB PO SCH ×2 (10:17→21:14)
[2019-04-27] MEDS: Carvedilol 6.25 MG TAB PO SCH ×3 (10:18→21:14)
--- NOTE | 2019-04-27 12:46 | PRG ---
DATE OF SERVICE: 04/27/2019 SUBJECTIVE: Kadeem Harkins is doing well. He has no complaints. OBJECTIVE: VITAL SIGNS: He is afebrile. Heart rate is in 70s, blood pressure 142/67. LUNGS: Clear. HEART: Regular rhythm. ABDOMEN: Soft. IMPRESSION AND PLAN: I will see him in the office to set him up for PET imaging I gave his my . Job ID: [id number]
[2019-04-27] MEDS: Levofloxacin 750 mg/D5W 500 MG in Premix Bag 1 BAG IVPB SCH (13:15)
--- NOTE | 2019-04-27 16:07 | PDOC.HOSPP ---
- Subjective Subjective: Seen and examined on the medical unit with telemetry. at bedside, time was given for questions, all answered in detail. Patient is saturating adequately on low-flow nasal cannula. Normally does not require oxygen. Patient states that he is breathing much better sense arrival. Less lower extremity edema. 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 He understands that he is going to get an outpatient PET scan to monitor for nodules in the lung and abdominal cavity. - Objective Vital Signs & Weight: Vital Signs (12 hours) Temp Pulse Pulse Pulse Resp BP BP 04/27/19 15:19 127/60 04/27/19 13:49 86 20 04/27/19 11:11 98.2 F 74 18 04/27/19 10:18 142/67 H 04/27/19 10:17 72 142/62 H 04/27/19 10:06 72 04/27/19 09:15 81 93 152/70 H 04/27/19 08:00 97.4 F L 72 18 04/27/19 07:29 04/27/19 07:28 67 16 04/27/19 04:10 98.1 F 77 18 BP BP Pulse Ox Pulse Ox 04/27/19 15:19 04/27/19 13:49 04/27/19 11:11 156/70 H 93 L 04/27/19 10:18 04/27/19 10:17 04/27/19 10:06 04/27/19 09:15 165/75 H 96 04/27/19 08:00 142/67 H 96 04/27/19 07:29 97 04/27/19 07:28 04/27/19 04:10 153/68 H 98 Weight Admit Weight 244 lb 9 oz Weight 239 lb 9 oz I&O: 04/26/19 04/27/19 04/28/19 06:59 06:59 06:59 Intake Total 1050 1610 Output Total 2140 4050 Balance -1090 -2440 Result Diagrams: 04/26/19 11:24 04/27/19 04:07 Additional Labs: Accuchecks 04/27/19 04/27/19 04/26/19 10:49 05:37 20:27 POC Glucose 291 H 238 H 221 H 04/26/19 17:18 POC Glucose 230 H Radiology Reviewed by me: Yes Hospitalist ROS - Review of Systems All other systems reviewed; all pertinent +/- noted in HPI/Subj - Medication Medications: Active Medications Generic Name Dose Route Start Last Admin Trade Name Freq PRN Reason Stop Dose Admin Albuterol/Ipratropium 3 ml 04/24/19 13:00 04/27/19 13:49 Duoneb NEB 3 ml [id number] SONIA Administration Atorvastatin Calcium 10 mg 04/25/19 09:00 04/27/19 10:05 Lipitor PO 10 mg DAILY SONIA Administration Carvedilol 12.5 mg 04/27/19 09:00 04/27/19 15:19 Coreg PO 12.5 mg TID SONIA Administration Dabigatran 150 mg 04/26/19 21:00 04/27/19 10:09 Pradaxa PO 150 mg BID SONIA Administration Digoxin 0.25 mg 04/26/19 09:00 04/27/19 10:06 Lanoxin PO 0.25 mg QAM SONIA Administration Diltiazem HCl 180 mg 04/25/19 09:00 04/27/19 10:05 Cardizem Cd PO 180 mg DAILY SONIA Administration Dutasteride 0.5 mg 04/25/19 09:00 04/27/19 10:04 Avodart PO 0.5 mg DAILY SONIA Administration Famotidine 20 mg 04/24/19 21:00 04/27/19 10:06 Pepcid PO 20 mg BID SONIA Administration Ferrous Sulfate 325 mg 04/24/19 21:00 04/27/19 10:06 Feosol PO 325 mg BID SONIA Administration Furosemide 80 mg 04/26/19 14:00 04/27/19 15:17 Lasix SLOW IVP 80 mg 0600,1400 SONIA Administration Cefepime HCl 1 gm/ Sodium 100 mls @ 200 mls/hr 04/24/19 21:00 04/27/19 10:03 Chloride IVPB 100 mls Q12HR SONIA Administration Insulin Glargine 15 units/ 0.15 mls @ 0 mls/hr 04/24/19 21:00 04/27/19 10:01 Miscellaneous Medication SC 0.15 mls BID SONIA Administration Levofloxacin 500 mg/ Device 100 mls @ 100 mls/hr 04/24/19 12:00 04/27/19 13: 15 IVPB 100 mls 1200 SONIA Administration Insulin Human Lispro 0 units 04/24/19 10:47 04/27/19 10:13 Humalog SC 4 unit .MODERATE SLIDING SC PRN Administration Moderate Correctional Scale Insulin Human Lispro 0 units 04/24/19 10:47 04/26/19 22:17 Humalog SC 2 unit .BEDTIME SLIDING SC PRN Administration Bedtime Correctional Scale Lisinopril 5 mg 04/27/19 09:00 04/27/19 10:17 Zestril PO 5 mg BID SONIA Administration Magnesium Oxide 800 mg 04/27/19 09:00 04/27/19 15:18 Magnesium Oxide PO 04/29/19 09:01 800 mg TID SONIA Administration Metolazone 5 mg 04/27/19 08:30 04/27/19 10:04 Zaroxolyn PO 5 mg 0830 SONIA Administration Ondansetron HCl 4 mg 04/24/19 10:47 04/24/19 18:32 Zofran IVP 4 mg Q6H PRN Administration Nausea/Vomiting Potassium Chloride 40 meq 04/27/19 09:00 04/27/19 15:23 K-Dur PO 40 meq TID SONIA Administration Senna/Docusate Sodium 2 tab 04/24/19 21:00 04/27/19 10:05 Senokot S PO 2 tab BID SONIA Administration Sodium Chloride 10 ml 04/26/19 21:00 04/27/19 10:24 Flush - Normal Saline IVF 10 ml Q12HR SONIA Administration Tamsulosin HCl 0.4 mg 04/25/19 09:00 04/27/19 10:06 Flomax PO 0.4 mg DAILY SONIA Administration - Exam General Appearance: NAD, awake alert Eye: anicteric sclera ENT: normocephalic atraumatic, moist mucosa Neck: supple, symmetric, no lymphadenopathy Heart: no murmur, no gallops, no rubs Respiratory: no rales, no ronchi, normal chest expansion, wheezes (faint) Gastrointestinal: soft, non-tender, no guarding, no rigidity Extremities: 2+ LE edema Skin - other findings: chronic skin changes LE Neurological: cranial nerve grossly intact, no focal deficits Musculoskeletal: generalized weakness Psychiatric: normal affect, normal behavior, A&O x 3 Hosp A/P (1) Acute exacerbation of CHF (congestive heart failure) Code(s): I50.9 - HEART FAILURE, UNSPECIFIED Status: Acute Qualifiers: Heart failure type: systolic Qualified Code(s): I50.23 - Acute on chronic systolic (congestive) heart failure (2) Lung nodule, multiple Status: Acute (3) PNA (pneumonia) Code(s): J18.9 - PNEUMONIA, UNSPECIFIED ORGANISM Status: Acute Qualifiers: Pneumonia type: due to unspecified organism (4) Chronic anemia Code(s): D64.9 - ANEMIA, UNSPECIFIED Status: Chronic (5) DM type 2 (diabetes mellitus, type 2) Status: Chronic Qualifiers: Diabetes mellitus longterm insulin use: with termite treater helper use (6) Obesity (BMI 30.0-34.9) Code(s): E66.9 - OBESITY, UNSPECIFIED Status: Chronic (7) Acute respiratory failure with hypoxia Code(s): J96.01 - ACUTE RESPIRATORY FAILURE WITH HYPOXIA Status: Resolved (8) Atrial fibrillation Code(s): I48.91 - UNSPECIFIED ATRIAL FIBRILLATION Status: Acute (9) Diabetes mellitus type 2 in obese Code(s): E11.69 - TYPE 2 DIABETES MELLITUS WITH OTHER SPECIFIED COMPLICATION; E66.9 - OBESITY, UNSPECIFIED Status: Chronic (10) Hypertension Code(s): I10 - ESSENTIAL (PRIMARY) HYPERTENSION Status: Chronic Qualifiers: Hypertension type: essential hypertension Qualified Code(s): I10 - Essential (primary) hypertension (11) Hypokalemia Code(s): E87.6 - HYPOKALEMIA Status: Chronic - Plan Plan: medical unit with telemetry pulmonology consultation, recommendations appreciated cardiology consultation, recommendations appreciated cardiomyopathy regimen adjusting blood pressure medications appropriately blood sugar control with long and short acting insulin Wean O2 as able, if unable to wean will need set up with home O2 prior to D/c patient will require outpatient PET scan for nodules in the chest and abdominal cavity GI prophylaxis DVT prophylaxis continue other home medications as able
[2019-04-28] MEDS: Dabigatran 150 mg Capsule PO SCH ×3 (00:12→21:32)
[2019-04-28] MEDS: Insulin Glargine 15 UNITS in Pre-Filled Syringe 1 EACH SC SCH (00:12)
[2019-04-28] MEDS: Ondansetron PF 4 MG/2 ML Vial IVP PRN ×2 (04:01→13:30)
[2019-04-28 04:59] LABS: Anion Gap 14 mmol/L (10-20); BUN (Urea Nitrogen) 15 mg/dL (8.4-25.7); Calc. Creatinine Clearance 101 mL/min (70-130); Calcium 8.8 mg/dL (7.8-10.44); Carbon Dioxide 37 mmol/L (23-31); Chloride 81 mmol/L (98-107); Estimated GFR-MDRD 73; Glucose 187 mg/dL (83-110); Sodium 129 mmol/L (136-145)
[2019-04-28 05:05] LABS: Potassium 2.6 mmol/L (3.5-5.1)
[2019-04-28] MEDS: Furosemide 100 MG/10 ML VIAL SLOW IVP SCH ×2 (05:26→15:15)
[2019-04-28] MEDS ORDERED: Potassium Chloride 20 MEQ TAB PO SCH (08:30)
[2019-04-28] MEDS: Atorvastatin Calcium 10 MG TAB PO SCH (09:08)
[2019-04-28] MEDS: Metolazone 5 MG TAB PO SCH (09:08)
[2019-04-28] MEDS: Digoxin 0.25 MG TAB PO SCH (09:08)
[2019-04-28] MEDS: Famotidine 20 MG TAB PO SCH ×2 (09:09→21:32)
[2019-04-28] MEDS: Ferrous Sulfate 325 MG TAB PO SCH ×2 (09:09→21:32)
[2019-04-28] MEDS: Magnesium Oxide 400 MG TAB PO SCH ×3 (09:09→21:31)
[2019-04-28] MEDS: Dutasteride 0.5 MG CAP PO SCH (09:09)
[2019-04-28] MEDS: Lisinopril 5 MG TAB PO SCH ×2 (09:10→21:32)
[2019-04-28] MEDS: Insulin Glargine 18 UNITS in Pre-Filled Syringe 1 EACH SC SCH ×2 (09:10→21:33)
[2019-04-28] MEDS: Tamsulosin HCl 0.4 MG CAP PO SCH (09:10)
[2019-04-28] MEDS: Potassium Chloride 20 MEQ TAB PO SCH ×3 (09:10→21:32)
[2019-04-28] MEDS: Senokot S 8.6-50 MG TAB PO SCH ×2 (09:11→21:56)
[2019-04-28] MEDS: Cefepime 1 GM in Sodium Chloride 0.9% 100 ML IVPB SCH ×2 (09:12→21:32)
[2019-04-28] MEDS: HumaLOG 300 UNITS/3 ML VIAL SC PRN ×2 (11:35→17:46)
[2019-04-28] MEDS: Levofloxacin 750 mg/D5W 500 MG in Premix Bag 1 BAG IVPB SCH (11:35)
[2019-04-28 14:24] LABS: Anion Gap 11 mmol/L (10-20); BUN (Urea Nitrogen) 17 mg/dL (8.4-25.7); Calc. Creatinine Clearance 97 mL/min (70-130); Calcium 8.4 mg/dL (7.8-10.44); Carbon Dioxide 37 mmol/L (23-31); Chloride 80 mmol/L (98-107); Estimated GFR-MDRD 74; Glucose 206 mg/dL (83-110); Sodium 125 mmol/L (136-145)
[2019-04-28 14:27] LABS: Potassium 2.8 mmol/L (3.5-5.1)
[2019-04-28] MEDS: Carvedilol 25 MG TAB PO SCH (17:45)
--- NOTE | 2019-04-28 18:27 | PDOC.HOSPP ---
- Subjective Subjective: Seen and examined on the medical unit with telemetry this a.m. Patient has had a great response to diuretic therapy, appreciate cardiology input. His lungs have improved to the point where he is not requiring oxygen at rest this a.m. I had the patient ambulated with physical therapy and he desaturated to a low of 84% on room air. At these levels the patient would require supplemental oxygen to go home. I am optimistic that continuing current management and exercise tolerance the patient may not require oxygen as his lungs continue to improve. Low potassium continues, replacing orally again. Discussed case with patient, patient's at bedside, RN, and physical therapy. - Objective Vital Signs & Weight: Vital Signs (12 hours) Temp Pulse Resp BP BP Pulse Ox Pulse Ox 04/28/19 16:30 97.4 F L 86 16 121/57 L 91 L 04/28/19 14:30 137/89 84 L 04/28/19 13:33 89 16 04/28/19 12:00 98.5 F 89 12 136/65 91 L 04/28/19 09:10 86 04/28/19 09:08 86 04/28/19 08:03 95 04/28/19 08:01 86 16 04/28/19 07:51 98.5 F 93 20 130/62 95 04/28/19 07:45 94 L Pulse Ox 04/28/19 16:30 04/28/19 14:30 90 L 04/28/19 13:33 04/28/19 12:00 04/28/19 09:10 04/28/19 09:08 04/28/19 08:03 04/28/19 08:01 04/28/19 07:51 04/28/19 07:45 Weight Admit Weight 244 lb 9 oz Weight 228 lb 3.2 oz I&O: 04/27/19 04/28/19 04/29/19 06:59 06:59 06:59 Intake Total 1610 1830 Output Total 4050 3650 Balance -2440 -1820 Result Diagrams: 04/26/19 11:24 04/28/19 13:57 Additional Labs: Accuchecks 04/28/19 04/28/19 04/28/19 17:28 10:38 05:33 POC Glucose 261 H 361 H 259 H 04/27/19 20:28 POC Glucose 270 H Radiology Reviewed by me: Yes Hospitalist ROS - Review of Systems All other systems reviewed; all pertinent +/- noted in HPI/Subj - Medication Medications: Active Medications Generic Name Dose Route Start Last Admin Trade Name Freq PRN Reason Stop Dose Admin Albuterol/Ipratropium 3 ml 04/24/19 13:00 04/28/19 13:33 Duoneb NEB 3 ml [id number] SONIA Administration Atorvastatin Calcium 10 mg 04/25/19 09:00 04/28/19 09:08 Lipitor PO 10 mg DAILY SONIA Administration Carvedilol 25 mg 04/28/19 17:00 04/28/19 17:45 Coreg PO 25 mg BID-WM SONIA Administration Dabigatran 150 mg 04/26/19 21:00 04/28/19 09:08 Pradaxa PO 150 mg BID SONIA Administration Digoxin 0.25 mg 04/26/19 09:00 04/28/19 09:08 Lanoxin PO 0.25 mg QAM SONIA Administration Dutasteride 0.5 mg 04/25/19 09:00 04/28/19 09:09 Avodart PO 0.5 mg DAILY SONIA Administration Famotidine 20 mg 04/24/19 21:00 04/28/19 09:09 Pepcid PO 20 mg BID SONIA Administration Ferrous Sulfate 325 mg 04/24/19 21:00 04/28/19 09:09 Feosol PO 325 mg BID SONIA Administration Furosemide 80 mg 04/26/19 14:00 04/28/19 15:15 Lasix SLOW IVP 80 mg 0600,1400 SONIA Administration Cefepime HCl 1 gm/ Sodium 100 mls @ 200 mls/hr 04/24/19 21:00 04/28/19 09:12 Chloride IVPB 100 mls Q12HR SONIA Administration Levofloxacin 500 mg/ Device 100 mls @ 100 mls/hr 04/24/19 12:00 04/28/19 11: 35 IVPB 100 mls 1200 SONIA Administration Insulin Glargine 18 units/ 0.18 mls @ 1 mls/hr 04/28/19 09:00 04/28/19 09:10 Miscellaneous Medication SC 0.18 mls BID SONIA Administration Insulin Human Lispro 0 units 04/24/19 10:47 04/28/19 17:46 Humalog SC 6 unit .MODERATE SLIDING SC PRN Administration Moderate Correctional Scale Insulin Human Lispro 0 units 04/24/19 10:47 04/26/19 22:17 Humalog SC 2 unit .BEDTIME SLIDING SC PRN Administration Bedtime Correctional Scale Lisinopril 5 mg 04/27/19 09:00 04/28/19 09:10 Zestril PO 5 mg BID SONIA Administration Magnesium Oxide 800 mg 04/27/19 09:00 04/28/19 15:18 Magnesium Oxide PO 04/29/19 09:01 800 mg TID SONIA Administration Metolazone 5 mg 04/27/19 08:30 04/28/19 09:08 Zaroxolyn PO 5 mg 0830 SONIA Administration Ondansetron HCl 4 mg 04/24/19 10:47 04/28/19 13:30 Zofran IVP 4 mg Q6H PRN Administration Nausea/Vomiting Potassium Chloride 40 meq 04/27/19 09:00 04/28/19 15:18 K-Dur PO 40 meq TID SONIA Administration Senna/Docusate Sodium 2 tab 04/24/19 21:00 04/28/19 09:11 Senokot S PO Not Given BID SONIA Sodium Chloride 10 ml 04/26/19 21:00 04/28/19 09:11 Flush - Normal Saline IVF 10 ml Q12HR SONIA Administration Tamsulosin HCl 0.4 mg 04/25/19 09:00 04/28/19 09:10 Flomax PO 0.4 mg DAILY SONIA Administration - Exam General Appearance: NAD, awake alert Eye: anicteric sclera ENT: normocephalic atraumatic, moist mucosa Neck: supple, symmetric, no lymphadenopathy Heart: no murmur, no gallops, no rubs Respiratory: no wheezes, no ronchi, normal chest expansion, no tachypnea, rales (faint) Gastrointestinal: soft, non-tender, no guarding, no rigidity Extremities: 2+ LE edema (Improved per patient. Chronic skin changes from venous stasis dermatitis) Skin - other findings: Chronic LE skin changes Neurological: cranial nerve grossly intact, no focal deficits Musculoskeletal: generalized weakness Psychiatric: normal affect, normal behavior, A&O x 3 Hosp A/P (1) Acute exacerbation of CHF (congestive heart failure) Code(s): I50.9 - HEART FAILURE, UNSPECIFIED Status: Acute Qualifiers: Heart failure type: systolic Qualified Code(s): I50.23 - Acute on chronic systolic (congestive) heart failure (2) Lung nodule, multiple Status: Acute (3) PNA (pneumonia) Code(s): J18.9 - PNEUMONIA, UNSPECIFIED ORGANISM Status: Acute Qualifiers: Pneumonia type: due to unspecified organism (4) Chronic anemia Code(s): D64.9 - ANEMIA, UNSPECIFIED Status: Chronic (5) DM type 2 (diabetes mellitus, type 2) Status: Chronic Qualifiers: 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: 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 middle or intermediate school principal use (6) Obesity (BMI 30.0-34.9) Code(s): E66.9 - OBESITY, UNSPECIFIED Status: Chronic (7) Acute respiratory failure with hypoxia Code(s): J96.01 - ACUTE RESPIRATORY FAILURE WITH HYPOXIA Status: Resolved (8) Atrial fibrillation Code(s): I48.91 - UNSPECIFIED ATRIAL FIBRILLATION Status: Acute (9) Diabetes mellitus type 2 in obese Code(s): E11.69 - TYPE 2 DIABETES MELLITUS WITH OTHER SPECIFIED COMPLICATION; E66.9 - OBESITY, UNSPECIFIED Status: Chronic (10) Hypertension Code(s): I10 - ESSENTIAL (PRIMARY) HYPERTENSION Status: Chronic Qualifiers: Hypertension type: essential hypertension Qualified Code(s): I10 - Essential (primary) hypertension (11) Hypokalemia Code(s): E87.6 - HYPOKALEMIA Status: Chronic - Plan Plan: medical unit with telemetry pulmonology consultation, recommendations appreciated Ambulated on room air by PT O2 sat 84% with ambulation on room air, I am optimistic that lungs will continue to improve and may not require O2 on discharge Wean O2 as able cardiology consultation, recommendations appreciated cardiomyopathy regimen adjusting blood pressure medications appropriately blood sugar control with long and short acting insulin patient will require outpatient PET scan for nodules in the chest and abdominal cavity GI prophylaxis DVT prophylaxis continue other home medications as able
[2019-04-29 04:55] LABS: BUN (Urea Nitrogen) 18 mg/dL (8.4-25.7); Calc. Creatinine Clearance 90 mL/min (70-130); Calcium 8.4 mg/dL (7.8-10.44); Estimated GFR-MDRD 68; Glucose 196 mg/dL (83-110)
[2019-04-29 05:06] LABS: Anion Gap 15 mmol/L (10-20); Carbon Dioxide 36 mmol/L (23-31); Chloride 80 mmol/L (98-107); Sodium 128 mmol/L (136-145)
[2019-04-29] MEDS: Furosemide 100 MG/10 ML VIAL SLOW IVP SCH (07:44)
[2019-04-29] MEDS: Tamsulosin HCl 0.4 MG CAP PO SCH (09:41)
[2019-04-29] MEDS: Ferrous Sulfate 325 MG TAB PO SCH ×2 (09:41→21:48)
[2019-04-29] MEDS: Dutasteride 0.5 MG CAP PO SCH (09:41)
[2019-04-29] MEDS: Carvedilol 25 MG TAB PO SCH ×2 (09:41→16:19)
[2019-04-29] MEDS: Cefepime 1 GM in Sodium Chloride 0.9% 100 ML IVPB SCH ×2 (09:42→21:47)
[2019-04-29] MEDS: Insulin Glargine 18 UNITS in Pre-Filled Syringe 1 EACH SC SCH ×2 (09:42→21:48)
[2019-04-29] MEDS: Digoxin 0.25 MG TAB PO SCH (09:43)
[2019-04-29] MEDS: Metolazone 5 MG TAB PO SCH (09:43)
[2019-04-29] MEDS: Lisinopril 5 MG TAB PO SCH ×2 (09:43→21:48)
[2019-04-29] MEDS: Potassium Chloride 20 MEQ TAB PO SCH ×3 (09:52→21:48)
[2019-04-29] MEDS: Dabigatran 150 mg Capsule PO SCH ×2 (09:52→21:47)
[2019-04-29] MEDS: Magnesium Oxide 400 MG TAB PO SCH (09:52)
[2019-04-29] MEDS: Atorvastatin Calcium 10 MG TAB PO SCH (09:52)
[2019-04-29] MEDS: Famotidine 20 MG TAB PO SCH ×2 (09:53→21:47)
[2019-04-29] MEDS: Senokot S 8.6-50 MG TAB PO SCH ×2 (09:53→21:56)
[2019-04-29 12:23] LABS: Hemoglobin 8.9 g/dL (14.0-18.0); Platelet Count 179 thou/uL (130-400)
[2019-04-29] MEDS: Ondansetron PF 4 MG/2 ML Vial IVP PRN (12:32)
[2019-04-29] MEDS: HumaLOG 300 UNITS/3 ML VIAL SC PRN ×2 (12:33→21:49)
[2019-04-29] MEDS: Levofloxacin 750 mg/D5W 500 MG in Premix Bag 1 BAG IVPB SCH (12:34)
[2019-04-29] MEDS: Furosemide 40 MG TAB PO SCH (14:12)
--- NOTE | 2019-04-29 14:43 | PDOC.HOSPP ---
- Subjective Subjective: Seen and examined on the medical unit with telemetry. He had some worsening shortness of breath in the night and is requiring oxygen this a.m. Lower extremity edema with chronic skin changes, have improved since admission. We are working towards getting the patient set up with home oxygen before discharge. 84% O2 saturation with ambulation. - Objective Vital Signs & Weight: Vital Signs (12 hours) Temp Pulse Resp BP BP Pulse Ox 04/29/19 14:04 86 16 04/29/19 11:38 98.5 F 86 16 142/65 H 04/29/19 09:43 95 04/29/19 08:06 97 04/29/19 08:05 95 16 04/29/19 08:00 96.2 F L 94 19 111/61 98 04/29/19 03:12 98.0 F 79 18 128/61 100 Weight Admit Weight 244 lb 9 oz Weight 230 lb 3.2 oz I&O: 04/28/19 04/29/19 04/30/19 06:59 06:59 06:59 Intake Total 1830 2148 Output Total 3650 2880 Balance -1820 -732 Result Diagrams: 04/29/19 11:57 04/29/19 03:50 Additional Labs: Accuchecks 04/29/19 04/29/19 04/28/19 11:13 06:25 20:51 POC Glucose 309 H 198 H 216 H 04/28/19 17:28 POC Glucose 261 H Radiology Reviewed by me: Yes Hospitalist ROS - Review of Systems All other systems reviewed; all pertinent +/- noted in HPI/Subj - Medication Medications: Active Medications Generic Name Dose Route Start Last Admin Trade Name Teofiloq PRN Reason Stop Dose Admin Albuterol/Ipratropium 3 ml 04/24/19 13:00 04/29/19 14:04 Duoneb NEB 3 ml [id number] SONIA Administration Atorvastatin Calcium 10 mg 04/25/19 09:00 04/29/19 09:52 Lipitor PO 10 mg DAILY SONIA Administration Carvedilol 25 mg 04/28/19 17:00 04/29/19 09:41 Coreg PO 25 mg BID-WM SONIA Administration Dabigatran 150 mg 04/26/19 21:00 04/29/19 09:52 Pradaxa PO 150 mg BID SONIA Administration Dutasteride 0.5 mg 04/25/19 09:00 04/29/19 09:41 Avodart PO 0.5 mg DAILY SONIA Administration Famotidine 20 mg 04/24/19 21:00 04/29/19 09:53 Pepcid PO 20 mg BID SONIA Administration Ferrous Sulfate 325 mg 04/24/19 21:00 04/29/19 09:41 Feosol PO 325 mg BID SONIA Administration Furosemide 40 mg 04/29/19 14:00 04/29/19 14:12 Lasix PO 40 mg 0900,1400 SONIA Administration Cefepime HCl 1 gm/ Sodium 100 mls @ 200 mls/hr 04/24/19 21:00 04/29/19 09:42 Chloride IVPB 100 mls Q12HR SONIA Administration Levofloxacin 500 mg/ Device 100 mls @ 100 mls/hr 04/24/19 12:00 04/29/19 12: 34 IVPB 100 mls 1200 SONIA Administration Insulin Glargine 18 units/ 0.18 mls @ 1 mls/hr 04/28/19 09:00 04/29/19 09:42 Miscellaneous Medication SC 0.18 mls BID SONIA Administration Insulin Human Lispro 0 units 04/24/19 10:47 04/29/19 12:33 Humalog SC 8 unit .MODERATE SLIDING SC PRN Administration Moderate Correctional Scale Insulin Human Lispro 0 units 04/24/19 10:47 04/26/19 22:17 Humalog SC 2 unit .BEDTIME SLIDING SC PRN Administration Bedtime Correctional Scale Lisinopril 5 mg 04/27/19 09:00 04/29/19 09:43 Zestril PO Not Given BID [facility] Ondansetron HCl 4 mg 04/24/19 10:47 04/29/19 12:32 Zofran IVP 4 mg Q6H PRN Administration Nausea/Vomiting Potassium Chloride 40 meq 04/27/19 09:00 04/29/19 14:12 K-Dur PO 40 meq TID SONIA Administration Senna/Docusate Sodium 2 tab 04/24/19 21:00 04/29/19 09:53 Senokot S PO Not Given BID [facility] Sodium Chloride 10 ml 04/26/19 21:00 04/29/19 09:53 Flush - Normal Saline IVF 10 ml Q12HR SONIA Administration Tamsulosin HCl 0.4 mg 04/25/19 09:00 04/29/19 09:41 Flomax PO 0.4 mg DAILY SONIA Administration - Exam General Appearance: awake alert Eye: anicteric sclera ENT: normocephalic atraumatic, moist mucosa Neck: supple, symmetric, no lymphadenopathy Heart: no murmur, no gallops, no rubs Respiratory: no wheezes, no ronchi, normal chest expansion, no tachypnea, rales (Worse this AM) Gastrointestinal: soft, non-tender, no guarding, no rigidity Extremities: 2+ LE edema Extremities - other findings: Chronic LE venous stasis dermatitis Neurological: cranial nerve grossly intact, no focal deficits Musculoskeletal: generalized weakness Psychiatric: A&O x 3 Hosp A/P (1) Acute exacerbation of CHF (congestive heart failure) Code(s): I50.9 - HEART FAILURE, UNSPECIFIED Status: Acute Qualifiers: Heart failure type: systolic Qualified Code(s): I50.23 - Acute on chronic systolic (congestive) heart failure (2) Lung nodule, multiple Status: Acute (3) PNA (pneumonia) Code(s): J18.9 - PNEUMONIA, UNSPECIFIED ORGANISM Status: Acute Qualifiers: Pneumonia type: due to unspecified organism (4) Chronic anemia Code(s): D64.9 - ANEMIA, UNSPECIFIED Status: Chronic (5) DM type 2 (diabetes mellitus, type 2) Status: Chronic Qualifiers: Diabetes mellitus snf insulin use: with snf use (6) Obesity (BMI 30.0-34.9) Code(s): E66.9 - OBESITY, UNSPECIFIED Status: Chronic (7) Acute respiratory failure with hypoxia Code(s): J96.01 - ACUTE RESPIRATORY FAILURE WITH HYPOXIA Status: Resolved (8) Atrial fibrillation Code(s): I48.91 - UNSPECIFIED ATRIAL FIBRILLATION Status: Acute (9) Diabetes mellitus type 2 in obese Code(s): E11.69 - TYPE 2 DIABETES MELLITUS WITH OTHER SPECIFIED COMPLICATION; E66.9 - OBESITY, UNSPECIFIED Status: Chronic (10) Hypertension Code(s): I10 - ESSENTIAL (PRIMARY) HYPERTENSION Status: Chronic Qualifiers: Hypertension type: essential hypertension Qualified Code(s): I10 - Essential (primary) hypertension (11) Hypokalemia Code(s): E87.6 - HYPOKALEMIA Status: Chronic - Plan Plan: medical unit with telemetry Cardiology consultation, recommendations appreciated CM consult to help set up patient with home O2 prior to D/c Ambulated on room air by PT O2 sat 84% with ambulation on room air Wean O2 as able cardiology consultation, recommendations appreciated cardiomyopathy regimen, responded well to IV lasix. Significant fluid loss. Replace potassium lost from Lasix adjusting blood pressure medications appropriately blood sugar control with long and short acting insulin patient will require outpatient PET scan for nodules in the chest and abdominal cavity GI prophylaxis DVT prophylaxis continue other home medications as able
[2019-04-30 04:42] LABS: BUN (Urea Nitrogen) 20 mg/dL (8.4-25.7); Calc. Creatinine Clearance 95 mL/min (70-130); Calcium 8.7 mg/dL (7.8-10.44); Estimated GFR-MDRD 72; Glucose 170 mg/dL (83-110)
[2019-04-30 04:51] LABS: Anion Gap 18 mmol/L (10-20); Carbon Dioxide 36 mmol/L (23-31); Sodium 125 mmol/L (136-145)
[2019-04-30 04:54] LABS: Chloride 74 mmol/L (98-107)
[2019-04-30] MEDS: Dabigatran 150 mg Capsule PO SCH (08:38)
[2019-04-30] MEDS: Potassium Chloride 20 MEQ TAB PO SCH ×2 (08:38→16:36)
[2019-04-30] MEDS: Carvedilol 25 MG TAB PO SCH (08:39)
[2019-04-30] MEDS: Atorvastatin Calcium 10 MG TAB PO SCH (08:39)
[2019-04-30] MEDS: Tamsulosin HCl 0.4 MG CAP PO SCH (08:39)
[2019-04-30] MEDS: Dutasteride 0.5 MG CAP PO SCH (08:39)
[2019-04-30] MEDS: Famotidine 20 MG TAB PO SCH (08:40)
[2019-04-30] MEDS: Ferrous Sulfate 325 MG TAB PO SCH (08:40)
[2019-04-30] MEDS: Cefepime 1 GM in Sodium Chloride 0.9% 100 ML IVPB SCH (08:41)
[2019-04-30] MEDS: Insulin Glargine 18 UNITS in Pre-Filled Syringe 1 EACH SC SCH (08:41)
[2019-04-30] MEDS: Furosemide 40 MG TAB PO SCH ×2 (08:41→12:59)
[2019-04-30] MEDS: Senokot S 8.6-50 MG TAB PO SCH (08:43)
[2019-04-30] MEDS: HumaLOG 300 UNITS/3 ML VIAL SC PRN ×2 (08:44→13:01)
--- NOTE | 2019-04-30 08:52 | PDOC.HOSPP ---
- Subjective Encounter Date: 04/30/19 Encounter Time: 12:00 Subjective: Patient a bit tired, but otherwise doing well. Saturating well on room air for the past 24 hours. Desats at home while ambulating with home PT so will check sats ambulating before d/c. - Objective Vital Signs & Weight: Vital Signs (12 hours) Temp Pulse Resp BP Pulse Ox 04/30/19 07:57 93 L 04/30/19 07:56 97.6 F 83 17 124/98 H 93 L 04/30/19 07:52 82 18 94 L 04/30/19 04:00 97.7 F 85 17 150/70 H 96 04/30/19 00:35 94 20 144/62 H 92 L 04/29/19 23:07 79 16 96 04/29/19 21:48 75 Weight Admit Weight 244 lb 9 oz Weight 230 lb I&O: 04/29/19 04/30/19 05/01/19 06:59 06:59 06:59 Intake Total 2148 1856 Output Total 2880 8500 Balance -775 -6812 Result Diagrams: 04/29/19 11:57 04/30/19 03:57 Additional Labs: Accuchecks 04/30/19 04/29/19 04/29/19 05:40 20:22 17:21 POC Glucose 193 H 278 H 218 H 04/29/19 11:13 POC Glucose 309 H Hospitalist ROS - Review of Systems Constitutional: denies: fever, chills Respiratory: denies: cough, shortness of breath Cardiovascular: denies: chest pain, palpitations Gastrointestinal: denies: nausea, vomiting, abdominal pain Genitourinary: denies: dysuria - Medication Medications: Active Medications Generic Name Dose Route Start Last Admin Trade Name Freq PRN Reason Stop Dose Admin Albuterol/Ipratropium 3 ml 04/24/19 13:00 04/30/19 07:52 Duoneb NEB 3 ml [id number] SONIA Administration Atorvastatin Calcium 10 mg 04/25/19 09:00 04/30/19 08:39 Lipitor PO 10 mg DAILY SONIA Administration Carvedilol 25 mg 04/28/19 17:00 04/30/19 08:39 Coreg PO 25 mg BID-WM SONIA Administration Dabigatran 150 mg 04/26/19 21:00 04/30/19 08:38 Pradaxa PO 150 mg BID [facility] Administration Dutasteride 0.5 mg 04/25/19 09:00 04/30/19 08:39 Avodart PO 0.5 mg DAILY [facility] Administration Famotidine 20 mg 04/24/19 21:00 04/30/19 08:40 Pepcid PO 20 mg BID SONIA Administration Ferrous Sulfate 325 mg 04/24/19 21:00 04/30/19 08:40 Feosol PO 325 mg BID SONIA Administration Furosemide 40 mg 04/29/19 14:00 04/30/19 08:41 Lasix PO 40 mg 0900,1400 SONIA Administration Levofloxacin 500 mg/ Device 100 mls @ 100 mls/hr 04/24/19 12:00 04/29/19 12: 34 IVPB 100 mls 1200 SONIA Administration Insulin Glargine 18 units/ 0.18 mls @ 1 mls/hr 04/28/19 09:00 04/30/19 08:41 Miscellaneous Medication SC 0.18 mls BID SONIA Administration Insulin Human Lispro 0 units 04/24/19 10:47 04/30/19 08:44 Humalog SC 2 unit .MODERATE SLIDING SC PRN Administration Moderate Correctional Scale Insulin Human Lispro 0 units 04/24/19 10:47 04/29/19 21:49 Humalog SC 3 unit .BEDTIME SLIDING SC PRN Administration Bedtime Correctional Scale Lisinopril 10 mg 04/30/19 09:00 04/30/19 08:46 Zestril PO 10 mg BID [facility] Administration Ondansetron HCl 4 mg 04/24/19 10:47 04/29/19 12:32 Zofran IVP 4 mg Q6H PRN Administration Nausea/Vomiting Potassium Chloride 40 meq 04/27/19 09:00 04/30/19 08:38 K-Dur PO 40 meq TID [facility] Administration Senna/Docusate Sodium 2 tab 04/24/19 21:00 04/30/19 08:43 Senokot S PO Not Given BID [facility] Sodium Chloride 10 ml 04/26/19 21:00 04/30/19 08:42 Flush - Normal Saline IVF 10 ml Q12HR [facility] Administration Tamsulosin HCl 0.4 mg 04/25/19 09:00 04/30/19 08:39 Flomax PO 0.4 mg DAILY SONIA Administration - Exam General Appearance: NAD, awake alert ENT: moist mucosa Heart: RRR, no murmur, no gallops, no rubs Respiratory: CTAB, no wheezes, no rales, no ronchi Gastrointestinal: soft, non-tender, non-distended, normal bowel sounds Extremities: 1+ LE edema Extremities - other findings: severe bilateral venous stasis dermatitis legs/ ankles, wrinkled up now Psychiatric: normal affect, normal behavior, A&O x 3 Hosp A/P (1) Acute exacerbation of CHF (congestive heart failure) Code(s): I50.9 - HEART FAILURE, UNSPECIFIED Status: Acute Qualifiers: Heart failure type: systolic Qualified Code(s): I50.23 - Acute on chronic systolic (congestive) heart failure (2) Lung nodule, multiple Status: Acute (3) PNA (pneumonia) Code(s): J18.9 - PNEUMONIA, UNSPECIFIED ORGANISM Status: Resolved Qualifiers: Pneumonia type: due to unspecified organism (4) Chronic anemia Code(s): D64.9 - ANEMIA, UNSPECIFIED Status: Chronic (5) DM type 2 (diabetes mellitus, type 2) Status: Chronic Qualifiers: 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 (6) Obesity (BMI 30.0-34.9) Code(s): E66.9 - OBESITY, UNSPECIFIED Status: Chronic (7) Acute respiratory failure with hypoxia Code(s): J96.01 - ACUTE RESPIRATORY FAILURE WITH HYPOXIA Status: Resolved (8) Atrial fibrillation Code(s): I48.91 - UNSPECIFIED ATRIAL FIBRILLATION Status: Acute (9) Hypertension Code(s): I10 - ESSENTIAL (PRIMARY) HYPERTENSION Status: Chronic Qualifiers: Hypertension type: essential hypertension Qualified Code(s): I10 - Essential (primary) hypertension (10) Hypokalemia Code(s): E87.6 - HYPOKALEMIA Status: Chronic (11) Hyponatremia Code(s): E87.1 - HYPO-OSMOLALITY AND HYPONATREMIA Status: Chronic - Plan Switching to oral Furosemide, replacing potassium, Dr. Dickens has cleared to d /c home. Afib controlled Finished course of Cefepime, normal WBC, afebrile, will d/c antibiotics See if desats while ambulating, if so will arrange home O2. D/C home today. DVT proph: SCDs
[2019-04-30] MEDS ORDERED: Lisinopril 10 MG TAB PO SCH (09:00)
[2019-04-30] MEDS: Levofloxacin 750 mg/D5W 500 MG in Premix Bag 1 BAG IVPB SCH (12:59)
[2019-04-30 14:38] VITALS: BMI 29.5
[2019-04-30] MEDS ORDERED: TRULICITY SC SCH (15:45)
[2019-04-30 16:35] VITALS: BP 138/68; TEMP 98.1
--- NOTE | 2019-05-01 02:07 | PQF ---
[employer] Crystal Reports Winform Viewer ADA AGEE RYAN ANDREW MD [id number] CLINICAL DOCUMENTATION CLARIFICATION FORM: POST DISCHARGE Addendum to original discharge summary date: ____ Late entry note date: __ DATE: 05/01/19 ATTN: Jason Kelley Please exercise your independent, professional judgment in responding to the clarification form. Clinical indicators are provided on the bottom of this form for your review Can you please further clarify the diagnosis of the patient? Please check appropriate box(es): [ X ] Sepsis due to: (Pna, UTI, gangrenous gall bladder, etc.) ___PNA [ ] Severe sepsis with acute organ dysfunction of: (Examples: respiratory failure, encephalopathy, acute kidney failure, other) [ ] Localized infection without sepsis [ ] Other diagnosis [ ] Unable to determine In addition, please specify: Present on Admission (POA): [ X ] Yes [ ] No [ ] Unable to determine For continuity of documentation, please document condition throughout progress notes and discharge summary. Thank You. CLINICAL INDICATORS - SIGNS / SYMPTOMS / LABS ED provider pg.2- VS patient afebrile, pulse tachycardic, BP hypertensive, Respiratory rate, increased ED provider pg.4- Multifocal pneumonia Laboratory- WBC 12.3H Microbiology- Venous blood right arm, blood culture-no growth in 5 days RISK FACTORS Pneumonia- Hospitalist PN pg.6 Acute respiratory failure with hypoxia- Hospitalist PN pg.6 Acute CHF exacerbation- Hospitalist PN pg.6 73 years old- H and P pg.1 TREATMENTS: Chest X ray 04/24 Chest /Thorax CTA- 04/24 Pulmonary Consult- Dr. Dominguez 04/24 BiPAP- H and P pg.2 IV Fluids- MAR IV Antibiotics- MAR (This form is maintained as a part of the permanent medical record) 2014 [employer]. All Rights Reserved [email or web address]
--- NOTE | 2019-05-01 04:14 | DIS ---
DATE OF ADMISSION: 04/24/2019 DATE OF DISCHARGE: 04/30/2019 PRIMARY CARE PHYSICIAN: Charles Howard DO REASON FOR ADMISSION: CHF exacerbation and lung mass. DIAGNOSES AT DISCHARGE: 1. Acute exacerbation of systolic congestive heart failure. 2. Multiple lung nodules. 3. Pneumonia. 4. Chronic anemia. 5. Diabetes mellitus, type 2. 6. Obesity. 7. Acute respiratory failure with hypoxia, resolved. 8. Atrial fibrillation. 9. Hypertension. 10. Hypokalemia. 11. Hyponatremia. PROCEDURES PERFORMED: 1. CT angio of the chest with and without contrast showing no evidence of pulmonary artery embolism, but there are bilateral pleural effusions with basilar consolidation, possibly representing atelectasis, aspiration or pneumonia, also with multiple solid nodules in the lung parenchyma worrisome for malignancy/metastasis, but there is also evidence of mediastinal lymphadenopathy as well as axillary adenopathy on the left and some possible inflammatory changes involving the gallbladder. 2. Abdominal ultrasound showing a regular edematous and thickened gallbladder wall with gallbladder calculi, as well as sludge. Findings could be related to cholecystitis in the correct clinical scenario, also bilateral pleural effusions, and enlargement of the liver in the craniocaudal dimensions. 3. CT abdomen and pelvis with contrast showing large bilateral pleural effusions and pulmonary nodules and also calcified mesenteric mass and two nodular soft tissue components, also some increase in size and number of small aortocaval nodes in the right common iliac node, but none of these are significantly enlarged. Also with 1.5 cm cystic lesion, the pancreatic tail distant his gallbladder. No obvious primary for the pulmonary masses. CONSULTATIONS: 1. Pulmonology, Davide Dominguez MD. 2. Cardiology, Alfonzo Dickens MD. 3. General Surgery, Brady Batista MD. SUMMARY OF HOSPITAL COURSE: This is a 73-year-old white male with a history of worsening shortness of breath and lower extremity edema for the past 3 weeks. The patient had evidence of congestive heart failure, but also had masses noted on his CT angio. He had evaluation done as above. Dr. Dominguez was consulted on-call for Dr. Donis and Dr. Donis eventually determined the patient would need outpatient workup for these lung nodules. The patient also had some small nodules in the abdomen as well. Dr. Batista was consulted about this and about the gallbladder. However, he determined that the lungs will be a more better place to look for biopsying something as the ones in the abdomen with the difficult to get through and very small and not likely the source of the patient's problems. Also deferred any sort of gallbladder operation at this time. The patient improved over his hospitalization. He was initially hypoxic on room air. However, by the end of hospitalization after diuresing 20 to 30 pounds of fluid, he was able to ambulate without any drops in his O2 sats and was on room air for the last 24 hours. The patient did have some drop in his sodium and his potassium with heavy diuresis. He was put on oral replacement three times a day for potassium. This was able to keep his potassium from dropping too low. Eventually was switched back over to oral Lasix by Dr. Dickens and he was cleared to discharge home. DISCHARGE MANAGEMENT: Discharged home. ACTIVITY: As tolerated. DIET: Diabetic fluid-restricted healthy heart diet. FOLLOWUP: Follow up with cardiac rehab as an outpatient. Follow up with Dr. Howard in [address] Dickens in 2 weeks. DISCHARGE MEDICATIONS: 1. Carvedilol 25 mg twice a day, 60 tablets dispensed. 2. Furosemide 40 mg twice a day, 60 tablets dispensed. 3. Lisinopril 10 mg twice a day, 60 tablets dispensed. 4. Potassium chloride 40 mEq three times a day, 90 tablets dispensed. 5. Atorvastatin 10 mg daily. 6. Pradaxa 150 mg twice a day. 7. Trulicity 0.75 mg subcu q.week. 8. Avodart 0.5 mg daily. 9. Janumet mg one tablet twice a day. 10. Tamsulosin 0.4 mg daily. Rearranging the details of this discharge took 35 minutes. Job ID: [id number]
== END 2019-04-30 16:50 | disposition home or self-care (01) | DRG 871 ==
LOC: ERS 04:46 → ERHOLD 07:13 → 2NO 16:20
PROVIDERS: ADMIT Internal Medicine; ATTEND Internal Medicine
DX: A41.9 Sepsis, unspecified organism (principal); J96.01 Acute respiratory failure with hypoxia; I50.23 Acute on chronic systolic (congestive) heart failure; I48.20 Chronic atrial fibrillation, unspecified; J18.9 Pneumonia, unspecified organism; E87.1 Hypo-osmolality and hyponatremia; I42.9 Cardiomyopathy, unspecified; I11.0 Hypertensive heart disease with heart failure; E78.5 Hyperlipidemia, unspecified; E78.00 Pure hypercholesterolemia, unspecified; E78.1 Pure hyperglyceridemia; E11.9 Type 2 diabetes mellitus without complications; N40.0 Benign prostatic hyperplasia without lower urinary tract symptoms; D64.9 Anemia, unspecified; E87.6 Hypokalemia; I87.2 Venous insufficiency (chronic) (peripheral); R91.8 Other nonspecific abnormal finding of lung field; G47.33 Obstructive sleep apnea (adult) (pediatric); Z79.01 Long term (current) use of anticoagulants; Z87.891 Personal history of nicotine dependence; Z90.49 Acquired absence of other specified parts of digestive tract; Z79.84 Long term (current) use of oral hypoglycemic drugs; Z79.899 Other long term (current) drug therapy; Z98.52 Vasectomy status; E66.01 Morbid (severe) obesity due to excess calories; Z68.29 Body mass index [BMI] 29.0-29.9, adult
CPT/HCPCS: 36415; 36416; 71045; 71275; 74177; 80048; 80053; 82105; 82330; 82378; 82803; 83605; 83735; 83880; 84443; 84484; 85014; 85018; 85025; 85049; 86301; 87040; 93005; 93306; 93798; 93975; 94640; 94660; 96374; 96375; 99292; J0692; J1160; J1815; J1940; J1956; J2405; J2920; J3010; J3370; J3490; J7620; Q9967